=== PATIENT | male | born 1990 | race African-American/Black ===

== ENCOUNTER 2018-03-31 13:18 | Emergency (ER) | payer OTHER ==
[2018-03-31] MEDS ORDERED: LIDOCAINE 1% Multi-Dose 20 ML VIAL. ID (14:30)
[2018-03-31] MEDS: LIDOCAINE 1% Multi-Dose 50 ML VIAL. ID (15:30)
[2018-03-31] MEDS: DIPHTH,PERTUSS(ACELL),TET TOX 0.5 ML DISP.SYRIN. VAX IM (15:54)
== END 2018-03-31 16:00 | disposition home or self-care (01) ==
LOC: ER 13:18
DX: S51.812A Laceration without foreign body of left forearm, initial encounter (principal); I10 Essential (primary) hypertension; W25.XXXA Contact with sharp glass, initial encounter; Y93.89 Activity, other specified; Y99.8 Other external cause status; Y92.89 Other specified places as the place of occurrence of the external cause
CPT/HCPCS: 12002; 90471; 90715; 99283-25

== ENCOUNTER 2018-04-13 11:26 | Emergency (ER) | payer OTHER | END 2018-04-13 11:57 | disposition home or self-care (01) | LOC: ER 11:26 | DX: S51.812D Laceration without foreign body of left forearm, subsequent encounter (principal); I10 Essential (primary) hypertension; X58.XXXD Exposure to other specified factors, subsequent encounter | CPT/HCPCS: 99281 ==

== ENCOUNTER 2018-11-27 05:54 | Emergency (ER) | payer BC, OTHER ==
[~2018-11-27] VITALS: Ht 177.8 cm; Wt 104.3 kg
--- NOTE | 2018-11-27 06:45 | PHYS DOC ---
Past Medical History Past Medical History: Hypertension Past Surgical History: No Surgical History Smoking: Cigarettes Alcohol Use: None Drug Use: None, Marijuana (recently stopped marijuana use) Adult General Chief Complaint Chief Complaint: LOWER EXTREMITY SWELLING HPI HPI Patient is a 28-year-old male who presents to the emergency department for evaluation. He states that on Monday, he began experiencing bilateral lower leg pain, along with some swelling, which seemed to have worsened somewhat today. He denies any definite injury, or any definite insect bites or injuries to his skin. Additionally, he states he has not been intoxicated, and would have known had injured himself. His pain is primarily in his ankles and lower calves bilaterally, somewhat more pronounced on the right. He has not had any fevers or chills, although on exam there is some warmth noted to the skin of his lower legs bilaterally. He denies any chest pain shortness of breath, dizziness or lightheadedness, numbness, or focal weakness. Palpation of the affected area, as well as ambulation, seems to worsen his pain. There are no alleviating factors to his symptoms. The patient states he does have a history of hypertension, but has not been on medication for quite some time. Review of Systems Review of Systems Constitutional: Denies fever or chills [] Eyes: Denies change in visual acuity, redness, or eye pain [] HENT: Denies nasal congestion or sore throat [] Respiratory: Denies cough or shortness of breath [] Cardiovascular: The patient denies any shortness of breath, chest pain, palpitations, or orthopnea [] GI: Denies abdominal pain, nausea, vomiting, bloody stools or diarrhea [] : Denies dysuria or hematuria [] Musculoskeletal: Denies back pain or joint pain, except as noted in the history of present illness [] Integument: Denies rash or skin lesions [] Neurologic: Denies headache, focal weakness or sensory changes [] Endocrine: Denies polyuria or polydipsia [] All other systems were reviewed and found to be within normal limits, except as documented in this note. Current Medications Current Medications Current Medications Medications (Trade) Dose Ordered Sig/Hussein Start Time Stop Time Status Last Admin Dose Admin Morphine Sulfate (Morphine Sulfate) 4 mg 1X ONCE 11/27/18 07:00 11/27/18 07:01 DC 11/27/18 07:34 4 MG Allergies Allergies Allergies Coded Allergies Type Severity Reaction Last Updated Verified No Known Drug Allergies 03/31/18 No Physical Exam Physical Exam PHYSICAL EXAM: CONSTITUTIONAL: Well developed, well nourished HEAD: normocephalic, atraumatic EENT: PERRL, EOMI. Conjunctivae normal color, sclerae non-icteric; moist mucous membranes. NECK: Supple, non-tender; no meningismus. LUNGS: Lungs CTA, breathing even and unlabored. Normal air movement. HEART: Regular rate and rhythm, no murmur CHEST: No deformity; non-tender ABDOMEN: The abdomen is soft, and non-tender, no masses or bruits. EXTREM: Normal ROM; no deformity, no discrete calf tenderness. Normal pulses palpable in all extremities. There is trace edema noted to the area of the right ankle, not evident on the left. There is diffuse tenderness to palpation to the skin and soft tissues in the area of the ankles bilaterally, as well as the soft tissues of the lower legs, right greater than left, with some mild warmth centered on the lower legs anteriorly, bilaterally, there is a small callus on the dorsal aspect of the right second toe, which the patient states has been there chronically, and is nontender. Distal sensation and motor function in the feet are normal. There is no erythema noted to the skin of the extremities. There are no discrete insect bites. SKIN: No rash; no diaphoresis NEURO: Alert; normal speech and cognition; CN's grossly intact; strength grossly intact without focal deficit. BACK: No CVA TTP. Current Patient Data Vital Signs Vital Signs Date Time Temp Pulse Resp B/P (MAP) Pulse Ox O2 Delivery O2 Flow Rate FiO2 11/27/18 06:32 82 16 198/109 (138) 100 Room Air 11/27/18 06:00 99.5 99.5 Lab Values Laboratory Tests Test 11/27/18 06:53 11/27/18 08:50 White Blood Count 9.7 x10^3/uL (4.0-11.0) Red Blood Count 5.53 x10^6/uL (4.30-5.70) Hemoglobin 13.8 g/dL (13.0-17.5) Hematocrit 42.6 % (39.0-53.0) Mean Corpuscular Volume 77 fL (79-100) L Mean Corpuscular Hemoglobin 25 pg (25-35) Mean Corpuscular Hemoglobin Concent 32 g/dL (31-37) Red Cell Distribution Width 13.0 % (11.5-14.5) Platelet Count 371 x10^3/uL (140-400) Neutrophils (%) (Auto) 79 % (31-73) H Lymphocytes (%) (Auto) 13 % (24-48) L Monocytes (%) (Auto) 8 % (0-9) Eosinophils (%) (Auto) 1 % (0-3) Basophils (%) (Auto) 1 % (0-3) Neutrophils # (Auto) 7.6 x10^3uL (1.8-7.7) Lymphocytes # (Auto) 1.2 x10^3/uL (1.0-4.8) Monocytes # (Auto) 0.7 x10^3/uL (0.0-1.1) Eosinophils # (Auto) 0.0 x10^3/uL (0.0-0.7) Basophils # (Auto) 0.1 x10^3/uL (0.0-0.2) Erythrocyte Sedimentation Rate 17 (0-15) H D-Dimer (Yadira) 0.41 ug/mlFEU (0.00-0.50) Sodium Level 137 mmol/L (136-145) Potassium Level 3.6 mmol/L (3.5-5.1) Chloride Level 103 mmol/L (98-107) Carbon Dioxide Level 25 mmol/L (21-32) Anion Gap 9 (6-14) Blood Urea Nitrogen 13 mg/dL (8-26) Creatinine 1.1 mg/dL (0.7-1.3) Estimated GFR (Cockcroft-Gault) 97.2 BUN/Creatinine Ratio 12 (6-20) Glucose Level 108 mg/dL (70-99) H Lactic Acid Level 0.6 mmol/L (0.4-2.0) Calcium Level 9.1 mg/dL (8.5-10.1) Magnesium Level 1.8 mg/dL (1.8-2.4) Total Bilirubin 0.2 mg/dL (0.2-1.0) Aspartate Amino Transferase (AST) 31 U/L (15-37) Alanine Aminotransferase (ALT) 44 U/L (16-63) Alkaline Phosphatase 135 U/L (46-116) H Creatine Kinase 631 U/L (39-308) H Troponin I Quantitative 0.049 ng/mL (0.000-0.055) C-Reactive Protein, Quantitative 55.4 mg/L (0-3.3) H AH-Kro-C-Type Natriuretic Peptide 320 pg/mL (0-124) H Total Protein 7.8 g/dL (6.4-8.2) Albumin 3.3 g/dL (3.4-5.0) L Albumin/Globulin Ratio 0.7 (1.0-1.7) L Urine Collection Type Unknown Urine Color Yellow Urine Clarity Clear Urine pH 6.0 Urine Specific Davis 1.020 Urine Protein 30 mg/dL (NEG-TRACE) Urine Glucose (UA) Negative mg/dL (NEG) Urine Ketones (Stick) Negative mg/dL (NEG) Urine Blood Negative (NEG) Urine Nitrite Negative (NEG) Urine Bilirubin Negative (NEG) Urine Urobilinogen Dipstick 1.0 mg/dL (0.2 mg/dL) Urine Leukocyte Esterase Negative (NEG) Urine RBC Occ /HPF (0-2) Urine WBC Occ /HPF (0-4) Urine Squamous Epithelial Cells Occ /LPF Urine Bacteria 0 /HPF (0-FEW) Urine Mucus Slight /LPF Urine Opiates Screen Pos (NEG) Urine Methadone Screen Neg (NEG) Urine Barbiturates Neg (NEG) Urine Phencyclidine Screen Neg (NEG) Urine Amphetamine/Methamphetamine Neg (NEG) Urine Benzodiazepines Screen Neg (NEG) Urine Cocaine Screen Neg (NEG) Urine Cannabinoids Screen Pos (NEG) Urine Ethyl Alcohol Neg (NEG) Laboratory Tests 11/27/18 06:53 Laboratory Tests 11/27/18 06:53 EKG EKG [Sinus rhythm @ 78 beats per minute, left axis deviation, normal intervals, lateral T wave inversion, lethargic or hypertrophy without acute ischemic ST/T changes. There are no old EKGs available for comparison.] Radiology/Procedures Radiology/Procedures [PROCEDURE: ANKLE BILAT 3V Indication: Ankle pain, swollen. TECHNIQUE: Multiple views of the bilateral ankles COMPARISON: None FINDINGS/ impression: No acute fracture or dislocation. Ankle mortise are intact. Mild bilateral ankle swelling, right more than left.] Course & Med Decision Making Course & Med Decision Making Pertinent Labs and Imaging studies reviewed. (See chart for details) [The patient's condition remains stable, I'm uncertain of the exact etiology of his symptoms. Infectious or inflammatory process or certainly on the differential, the latter is somewhat suspected. The exact etiology of why the patient would develop a myositis is unclear at this time. I discussed overnight hospitalization, as the patient does not have an established primary care provider, but the patient declined this. I did stress importance of outpatient follow-up and he will be given resources to help establish a primary care provider. We discussed return precautions in detail. The importance of compliance of medication was stressed.] Dragon Disclaimer Dragon Disclaimer This electronic medical record was generated, in whole or in part, using a voice recognition dictation system. Departure Departure Impression: Primary Impression: Leg pain Additional Impression: Myositis Disposition: 01 HOME, SELF-CARE Condition: STABLE Referrals: UNKNOWN PCP NAME (PCP) Patient Instructions: Edema, Leg Cramps Additional Instructions: Use the prescribed medications as instructed. It is critically important that you follow-up with family physician or primary care provider for further outpatient evaluation. Please call to schedule appointment using the resources provided. Return to medical care for any new or worsening symptoms, increasing pain, increasing swelling, or any other concerning symptoms. Scripts Doxycycline Hyclate (DOXYCYCLINE HYCLATE) 100 Mg Tablet 1 TAB PO BID, #14 TAB Prov: BRI CUELLAR MD 11/27/18 Methylprednisolone (MEDROL) 4 Mg Tab.ds.pk 1 PKG PO UD, #1 PKG Prov: BRI CUELLAR MD 11/27/18 Problem Qualifiers BRI CUELLAR MD Nov 27, 2018 06:45
--- NOTE | 2018-11-27 06:48 | EKG ---
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
[2018-11-27] MEDS ORDERED: MORPHINE SULFATE 2 MG/ML VIAL. IV ONE (07:00)
[2018-11-27 07:07] LABS: BASO # 0.1 x10^3/uL (0.0-0.2); BASO % 1 % (0-3); EOS % 1 % (0-3); HEMATOCRIT 42.6 % (39.0-53.0); HEMOGLOBIN 13.8 g/dL (13.0-17.5); LYMPH # 1.2 x10^3/uL (1.0-4.8); LYMPH % 13 % (24-48); MEAN CORPUSCULAR HEMOGLOBIN 25 pg (25-35); MEAN CORPUSCULAR HGB CONC 32 g/dL (31-37); MEAN CORPUSCULAR VOLUME 77 fL (79-100); MONO # 0.7 x10^3/uL (0.0-1.1); MONO % 8 % (0-9); NEUT # 7.6 x10^3uL (1.8-7.7); NEUT % 79 % (31-73); PLATELET COUNT 371 x10^3/uL (140-400); RED BLOOD COUNT 5.53 x10^6/uL (4.30-5.70); WHITE BLOOD COUNT 9.7 x10^3/uL (4.0-11.0)
[2018-11-27 07:29] LABS: CALCIUM 9.1 mg/dL (8.5-10.1); CREATININE 1.1 mg/dL (0.7-1.3); GFR 97.2; POTASSIUM 3.6 mmol/L (3.5-5.1)
[2018-11-27 07:33] LABS: ALBUMIN 3.3 g/dL (3.4-5.0); ALBUMIN/GLOBULIN RATIO 0.7 (1.0-1.7); MAGNESIUM 1.8 mg/dL (1.8-2.4); TOTAL BILIRUBIN 0.2 mg/dL (0.2-1.0); TOTAL PROTEIN 7.8 g/dL (6.4-8.2)
[2018-11-27 07:53] LABS: C-REACTIVE PROTEIN 55.4 mg/L (0-3.3)
--- NOTE | 2018-11-27 08:20 | RAD ---
Indication: Ankle pain, swollen. TECHNIQUE: Multiple views of the bilateral ankles COMPARISON: None FINDINGS/ impression: No acute fracture or dislocation. Ankle mortise are intact. Mild bilateral ankle swelling, right more than left. Electronically signed by: Neeraj Solis DO (11/27/2018 8:15 AM) [id number]
[2018-11-27 09:07] LABS: BILIRUBIN,URINE NEGATIVE (NEG); CLARITY,URINE CLEAR; COLOR,URINE YELLOW; NITRITE,URINE NEGATIVE (NEG); PROTEIN,URINE 30 mg/dL (NEG-TRACE)
[2018-11-27 09:11] LABS: AMPHETAMINE/METHAMPHETAMINE NEG (NEG); BARBITURATES NEG (NEG); BENZODIAZEPINES NEG (NEG); CANNABINOIDS POS (NEG); COCAINE NEG (NEG); METHADONE NEG (NEG); OPIATES POS (NEG); PHENCYCLIDINE NEG (NEG)
[2018-11-27 09:17] LABS: RBC,URINE OCC /HPF (0-2)
[2018-11-27 09:18] LABS: BACTERIA,URINE 0 /HPF (0-FEW); SQUAMOUS EPITHELIAL CELL,UR OCC /LPF; WBC,URINE OCC /HPF (0-4)
[2018-11-27 09:30] VITALS: BP 188/85
[2018-11-27] MEDS ORDERED: DOXY100T PO (09:39)
[2018-11-27] MEDS ORDERED: METH4TAB2 PO (09:39)
== END 2018-11-27 10:04 | disposition home or self-care (01) ==
LOC: ER 05:54
DX: M60.862 Other myositis, left lower leg (principal); M60.861 Other myositis, right lower leg; M25.471 Effusion, right ankle; M25.472 Effusion, left ankle; I10 Essential (primary) hypertension; F17.210 Nicotine dependence, cigarettes, uncomplicated
CPT/HCPCS: 36415; 73610; 80053; 80307; 81001; 82550; 83605; 83735; 83880; 84484; 85025; 85379; 85651; 86140; 87040; 93005; 96374; 99284; J2270

== ENCOUNTER 2022-02-11 01:24 | Inpatient (IN) | payer OTHER ==
[~2022-02-11] VITALS: Ht 180.3 cm; Wt 95.9 kg
[2022-02-11] VITALS (12 sets, daily range): BP systolic 140–179; BP diastolic 94–128
[~2022-02-11 01:24] MED LIST: AMLO-187 PO; CARV6.2511 PO; DOXY100T PO; HYDR-2869 PO; METH4TAB2 PO
[2022-02-11 02:07] LABS: BASO # 0.1 x10^3/uL (0.0-0.2); BASO % 1 % (0-3); EOS # 0.1 x10^3/uL (0.0-0.7); EOS % 2 % (0-3); HEMATOCRIT 41.3 % (39.0-53.0); HEMOGLOBIN 13.8 g/dL (13.0-17.5); LYMPH # 1.6 x10^3/uL (1.0-4.8); LYMPH % 29 % (24-48); MEAN CORPUSCULAR HEMOGLOBIN 26 pg (25-35); MEAN CORPUSCULAR HGB CONC 34 g/dL (31-37); MEAN CORPUSCULAR VOLUME 76 fL (79-100); MONO # 0.4 x10^3/uL (0.0-1.1); MONO % 7 % (0-9); NEUT # 3.5 x10^3/uL (1.8-7.7); NEUT % 62 % (31-73); PLATELET COUNT 344 x10^3/uL (140-400); RED BLOOD COUNT 5.42 x10^6/uL (4.30-5.70); RED CELL DISTRIBUTION WIDTH 13.6 % (11.5-14.5); WHITE BLOOD COUNT 5.6 x10^3/uL (4.0-11.0)
--- NOTE | 2022-02-11 02:09 | RAD ---
AP chest x-ray HISTORY: Shortness of breath. COMPARISON: Chest x-ray March 19, 2021 FINDINGS: Cardiomegaly is stable. No pneumothorax. No pleural effusions. Pulmonary interstitial infil trates are stable. IMPRESSION: Congestive heart failure and pulmonary interstitial edema, likely reflective of congestiv e heart failure, stable. No pleural effusions. Electronically signed by: Drake Fisher MD (02/11/2022 2:07 AM) [facility]
[2022-02-11 02:16] LABS: PROTHROMBIN TIME PATIENT 14.1 SEC (11.7-14.0)
[2022-02-11 02:19] LABS: CALCIUM 8.6 mg/dL (8.5-10.1); CREATININE 1.9 mg/dL (0.7-1.3); GFR 50.6; POTASSIUM 4.3 mmol/L (3.5-5.1)
[2022-02-11 02:24] LABS: ALBUMIN 2.8 g/dL (3.4-5.0); ALBUMIN/GLOBULIN RATIO 0.7 (1.0-1.7); TOTAL BILIRUBIN 0.5 mg/dL (0.2-1.0); TOTAL PROTEIN 6.6 g/dL (6.4-8.2)
--- NOTE | 2022-02-11 03:29 | PHYS DOC ---
Past Medical History Past Medical History: Hypertension Past Surgical History: Other Additional Past Surgical Histo: Testicular (didn't drop) Smoking Status: Never Smoker Alcohol Use: None Drug Use: None, Marijuana Adult General Chief Complaint Chief Complaint: SHORTNESS OF BREATH HPI HPI The patient is a 31-year-old male with a history of severe hypertension (supposed to be on multiple medications but noncompliant for the last 1 year), cardiomyopathy/heart failure (ejection fraction 40-45% as per last echocardiogram, with moderate concentric LVH) and tobacco abuse. Mr. Stevenson presents for evaluation of dyspnea with minimal exertion as well as orthopnea and PND, all with onset over the last 2 to 3 days. Associated minimal bilateral symmetric ankle swelling. 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 States this is not normal for him. Denies other focal or specific symptoms and specifically denies fevers, nausea or vomiting, upper respiratory congestion/rhinorrhea, cough, sore throat, chest pain of any kind, abdominal pain, flank pain, back pain, dysuria, hematuria, polyuria or oliguria, changes in bowel habits. Patient is alert, oriented x4, pleasantly and appropriately interactive and in no acute distress, not conversationally dyspneic, and ambulatory to his ED bed with a narrow, steady gait. Vital signs are notable for marked hypertension (213/160 on arrival) and are otherwise reassuring. Review of Systems Review of Systems A 12 point review of systems was completed and was negative except where noted in HPI above. Current Medications Current Medications Current Medications Medications (Trade) Dose Ordered Sig/Hussein Start Time Stop Time Status Last Admin Dose Admin Acetaminophen (Tylenol) 650 mg PRN Q4HRS PRN 02/11/22 03:45 02/12/22 03:44 UNV Aspirin (Aspirin Chewable) 324 mg 1X ONCE 02/11/22 03:30 02/11/22 03:31 DC Furosemide (Lasix) 40 mg 1X ONCE 02/11/22 03:30 02/11/22 03:31 DC Nicardipine HCl 50 mg/Sodium Chloride 250 ml @ 50 mls/hr CONT PRN 02/11/22 02:15 02/11/22 02:40 50 MLS/HR Ondansetron HCl (Zofran) 4 mg PRN Q8HRS PRN 02/11/22 03:45 02/12/22 03:44 UNV Allergies Allergies Allergies Coded Allergies Type Severity Reaction Last Updated Verified No Known Drug Allergies 03/31/18 No Physical Exam Physical Exam 31-year-old male appearing nontoxic and in no acute distress. Head is normocephalic and atraumatic. Neck is supple and nontender. Oropharynx is moist. Lungs are clear to auscultation at all stations. There is a normal S1 and S2 without rubs or gallops and capillary refill is appropriate, less than 2 seconds globally. Abdomen is soft, nontender and nondistended without pulsatile mass. Skin is warm and dry without cyanosis, clubbing or edema. Psychiatrically, the patient demonstrates appropriate mood and affect and is alert. Evaluation of the extremities reveals BUEs and BLEs neurovascularly intact distally with strength 5 out of 5, sensation intact light touch in all nerve distributions, radial, DP and PT pulses 2+ and equal bilaterally, capillary refill less than 2 seconds, hands and feet warm and well-perfused. 1+ pitting edema of the bilateral lower extremities at the level of the ankles and below, symmetric. No calf tenderness or swelling bilaterally. Homans test is negative bilaterally. Current Patient Data Vital Signs Vital Signs Date Time Temp Pulse Resp B/P (MAP) Pulse Ox O2 Delivery O2 Flow Rate FiO2 02/11/22 03:38 101 16 167/104 (125) 97 Room Air 02/11/22 01:38 98.4 98.4 Lab Values Laboratory Tests Test 02/11/22 01:58 02/11/22 03:12 White Blood Count 5.6 x10^3/uL (4.0-11.0) Red Blood Count 5.42 x10^6/uL (4.30-5.70) Hemoglobin 13.8 g/dL (13.0-17.5) Hematocrit 41.3 % (39.0-53.0) Mean Corpuscular Volume 76 fL (79-100) L Mean Corpuscular Hemoglobin 26 pg (25-35) Mean Corpuscular Hemoglobin Concent 34 g/dL (31-37) Red Cell Distribution Width 13.6 % (11.5-14.5) Platelet Count 344 x10^3/uL (140-400) Neutrophils (%) (Auto) 62 % (31-73) Lymphocytes (%) (Auto) 29 % (24-48) Monocytes (%) (Auto) 7 % (0-9) Eosinophils (%) (Auto) 2 % (0-3) Basophils (%) (Auto) 1 % (0-3) Neutrophils # (Auto) 3.5 x10^3/uL (1.8-7.7) Lymphocytes # (Auto) 1.6 x10^3/uL (1.0-4.8) Monocytes # (Auto) 0.4 x10^3/uL (0.0-1.1) Eosinophils # (Auto) 0.1 x10^3/uL (0.0-0.7) Basophils # (Auto) 0.1 x10^3/uL (0.0-0.2) Prothrombin Time 14.1 SEC (11.7-14.0) H Prothrombin Time INR 1.1 (0.8-1.1) Activated Partial Thromboplast Time 32 SEC (24-38) Sodium Level 135 mmol/L (136-145) L Potassium Level 4.3 mmol/L (3.5-5.1) Chloride Level 103 mmol/L (98-107) Carbon Dioxide Level 23 mmol/L (21-32) Anion Gap 9 (6-14) Blood Urea Nitrogen 31 mg/dL (8-26) H Creatinine 1.9 mg/dL (0.7-1.3) H Estimated GFR (Cockcroft-Gault) 50.6 BUN/Creatinine Ratio 16 (6-20) Glucose Level 101 mg/dL (70-99) H Calcium Level 8.6 mg/dL (8.5-10.1) Total Bilirubin 0.5 mg/dL (0.2-1.0) Aspartate Amino Transferase (AST) 84 U/L (15-37) H Alanine Aminotransferase (ALT) 161 U/L (16-63) H Alkaline Phosphatase 137 U/L (46-116) H Troponin I High Sensitivity 603 ng/L (4-75) H IV-Yng-F-Type Natriuretic Peptide 6311 pg/mL (0-124) H Total Protein 6.6 g/dL (6.4-8.2) Albumin 2.8 g/dL (3.4-5.0) L Albumin/Globulin Ratio 0.7 (1.0-1.7) L Ethyl Alcohol Level < 10 mg/dL (0-10) Urine Opiates Screen Neg (NEG) Urine Methadone Screen Neg (NEG) Urine Barbiturates Neg (NEG) Urine Phencyclidine Screen Neg (NEG) Urine Amphetamine/Methamphetamine Neg (NEG) Urine Benzodiazepines Screen Neg (NEG) Urine Cocaine Screen Neg (NEG) Urine Cannabinoids Screen Pos (NEG) Urine Ethyl Alcohol Neg (NEG) Laboratory Tests 02/11/22 01:58 Laboratory Tests 02/11/22 01:58 EKG EKG Sinus rhythm, rate 106, no acute ST elevation or depression, RI 146, QRS 102, QT c 477, EP interpretation. Nonischemic tracing. Radiology/Procedures Radiology/Procedures AP chest x-ray HISTORY: Shortness of breath. COMPARISON: Chest x-ray March 19, 2021 FINDINGS: Cardiomegaly is stable. No pneumothorax. No pleural effusions. Pulmonary interstitial infiltrates are stable. IMPRESSION: Congestive heart failure and pulmonary interstitial edema, likely reflective of congestive heart failure, stable. No pleural effusions. Electronically signed by: Zackary Fisher MD (02/11/2022 2:07 AM) [facility] [place] DICTATED and SIGNED BY: ZACKARY FISHER MD DATE: 02/11/22204 Course & Med Decision Making Course & Med Decision Making As above is remarkable primarily for acute renal insufficiency, evidence of acute on chronic congestive failure with elevated BNP and interstitial edema noted on chest x-ray, and evidence of NSTEMI which is likely Type II due to demand given lack of any chest pain now or in the recent past. No ischemic changes on EKG. Have given a full-strength aspirin and a dose of Lovenox. Blood pressure has come down nicely on a nicardipine drip. Patient has received a dose of IV Lasix. Mild LFT derangements are likely due to congestive hepatopathy. I had a long conversation with Mr. Stevenson regarding the need to be adherent to therapy for his heart failure and his hypertension. Adhering to prescribed therapy and following up with a primary care doctor and with the senior materials scientist on an outpatient basis will prevent his early . He was able to restate these teaching points in his own words and appeared to understand them. Bringing in for further care under hospitalist Dr. Maria, who graciously accepts. Cardiology consult placed. Danial Disclaimer Danial Disclaimer This electronic medical record was generated, in whole or in part, using a voice recognition dictation system. Departure Departure Impression: Primary Impression: Acute exacerbation of congestive heart failure Additional Impressions: Accelerated hypertension Acute renal insufficiency NSTEMI (non-ST elevated myocardial infarction) Disposition: ADMITTED INPATIENT Condition: GUARDED Referrals: NON,STAFF (PCP) Problem Qualifiers Primary Impression: Acute exacerbation of congestive heart failure Heart failure type: combined systolic and diastolic Qualified Codes: I50.43 - Acute on chronic combined systolic (congestive) and diastolic (congestive) heart failure VARINDER PARKS MD Feb 11, 2022 03:29
[2022-02-11] MEDS ORDERED: FUROSEMIDE 40 MG/4 ML VIAL. IVP ONE (03:30)
[2022-02-11] MEDS ORDERED: ASPIRIN CHEWABLE 81 MG TABLET. PO ONE (03:30)
[2022-02-11 03:31] LABS: BARBITURATES NEG (NEG); BENZODIAZEPINES NEG (NEG); CANNABINOIDS POS (NEG); COCAINE NEG (NEG); METHADONE NEG (NEG); OPIATES NEG (NEG); PHENCYCLIDINE NEG (NEG)
[2022-02-11 03:36] LABS: AMPHETAMINE/METHAMPHETAMINE NEG (NEG)
[2022-02-11] MEDS ORDERED: ONDANSETRON PF 4 MG/2 ML VIAL. IVP PRN ×2 (03:45→10:00)
[2022-02-11] MEDS ORDERED: ACETAMINOPHEN 325 MG TABLET. PO PRN ×2 (03:45→10:00)
--- NOTE | 2022-02-11 06:17 | EKG ---
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
[2022-02-11 09:02] LABS: CHOLESTEROL/HDL RATIO 4.4
[2022-02-11] MEDS: ASPIRIN ENTERIC COATED 81 MG TABLET.DR. PO SCH (09:10)
[2022-02-11] MEDS: CARVEDILOL 6.25 MG TABLET. PO SCH ×2 (09:12→15:42)
[2022-02-11] MEDS: LABETALOL 20 MG/4 ML DISP.SYRIN. IVP PRN ×2 (09:13→12:36)
--- NOTE | 2022-02-11 09:59 | PDOC1 ---
History and Physical Date of Service: DOS: DATE: 02/11/22 TIME: 09:53 Chief Complaint: Chief Complain: sob, malik History of Present Illness: HPI: Patient is a 31-year-old -Cub[place] male presented to the emergency room overnight due to shortness of breath and dyspnea on exertion. Patient was seen here nearly a year ago and diagnosed with hypertension heart failure. Was discharged home on a handful of medications and was initially compliant but the mother's children had recently around that time obviously was very distraught said he stopped taking care of himself overall thus stopped taking his medicine as well. Said that since stopping his medication he will occasionally get similar shortness of breath episodes. But would resolve. Notes that during this episode he was having shortness of breath with minimal exertion as well as unable to lay flat and bilateral ankle swelling. Started 3 to 5 days ago. Given worsening of the symptoms and being out of his prescriptions he decided to present to the emergency room overnight. On arrival here blood pressure was greater than 200 systolic eventually required to be placed on Cardene drip which has been weaned off at this point. He does still have some fluid overload and pulmonary edema. When I evaluated him at bedside he was up in the chair very pleasant reporting some ongoing shortness of breath when he gets up to go to the bathroom. C ardiology consult. Past Medical/Surgical History: PMH/PSH: Past Medical History: Hypertension, chf Additional Past Surgical Histo: Testicular (didn't drop) Smoking Status: Occasional tobacco use Alcohol Use: None Drug Use: None, Marijuana Allergies: Allergies: Coded Allergies: No Known Drug Allergies (Unverified , 03/31/18) Family History: Family History: Hypertension Current Medications: Current Medications Current Medications Nicardipine HCl 50 mg/Sodium Chloride 250 ml @ 50 mls/hr CONT PRN IV PER PROTOCOL Last administered on 02/11/22at 02:40; Start 02/11/22 at 02:15 Aspirin (Aspirin Chewable) 324 mg 1X ONCE PO Last administered on 02/11/22at 04:13; Start 02/11/22 at 03:30; Stop 02/11/22 at 03:31; Status DC Furosemide (Lasix) 40 mg 1X ONCE IVP Last administered on 02/11/22at 04:13; Start 02/11/22 at 03:30; Stop 02/11/22 at 03:31; Status DC Ondansetron HCl (Zofran) 4 mg PRN Q8HRS PRN IVP NAUSEA/VOMITING 1ST CHOICE; Start 02/11/22 at 03:45; Stop 02/12/22 at 03:44 Acetaminophen (Tylenol) 650 mg PRN Q4HRS PRN PO FEVER > 100.3'F; Start 02/11/22 at 03:45; Stop 02/12/22 at 03:44 Enoxaparin Sodium (Lovenox 100mg Syringe) 100 mg 1X ONCE SQ Last administered on 02/11/22at 04:13; Start 02/11/22 at 04:15; Stop 02/11/22 at 04:16; Status DC Amlodipine Besylate (Norvasc) 10 mg DAILY PO Last administered on 02/11/22at 09:12; Start 02/11/22 at 09:00 Carvedilol (Coreg) 6.25 mg BIDWMEALS PO Last administered on 02/11/22at 09:12; Start 02/11/22 at 09:00 Aspirin (Ecotrin) 81 mg DAILYWBKFT PO Last administered on 02/11/22at 09:10; Start 02/11/22 at 09:00 Labetalol HCl (Normodyne Iv Push) 20 mg PRN Q2HR PRN IVP HYPERTENSION Last administered on 02/11/22at 09:13; Start 02/11/22 at 08:30 Active Scripts Active Reported No Known Medications Prior To Admisstion (Info) Each 1 Each MC 1X ROS: Review of Systems Review of System Unless noted in HPI 14 point review of systems is negative Physical Exam: Vital Signs: Vital Signs Date Time Temp Pulse Resp B/P (MAP) Pulse Ox O2 Delivery O2 Flow Rate FiO2 02/11/22 09:13 98 171/110 02/11/22 07:00 97.7 18 98 Nasal Cannula 2.0 97.7 Physcial Exam: GEN: No apparent distress. Alert and oriented HEENT: Normal cephalic, atraumatic, external auditory canals are patent EYES: Extraocular muscles are intact, pupil are equally round and reactive to light and accommodation MUSCULOSKELETAL: Well developed , well nourished, good range of motion ENDOCRINE: No thyromegaly was palpated LYMPHATICS: No cervical chain or axillary nodes were noted HEMATOPOIETIC: No bruising NECK: Supple, no JVD, no thyromegaly was noted LUNGS: Decreased air entry throughout crackles bilaterally. HEART: RRR, S1, S2 present. Peripheral pulses intact, no obvious murmurs noted ABDOMEN: Soft, nontender. Positive bowel sounds, no organomegaly, normal bowel sounds EXTREMITIES: . Mild bilateral lower extremity edema NEUROLOGIC: Normal speech and tone. A&O x 3, moves all extremities, no obvio us focal deficits PSYCHIATRIC: Normal affect, normal mood. Stable SKIN: No ulcerations or rashes, good skin turgor, no jaundice VASCULAR: Good capillary refill, neurovascular bundle appears to be intact Labs: Labs: Laboratory Tests Test 02/11/22 01:58 02/11/22 03:12 02/11/22 04:00 02/11/22 07:30 White Blood Count 5.6 x10^3/uL (4.0-11.0) Red Blood Count 5.42 x10^6/uL (4.30-5.70) Hemoglobin 13.8 g/dL (13.0-17.5) Hematocrit 41.3 % (39.0-53.0) Mean Corpuscular Volume 76 fL (79-100) Mean Corpuscular Hemoglobin 26 pg (25-35) Mean Corpuscular Hemoglobin Concent 34 g/dL (31-37) Red Cell Distribution Width 13.6 % (11.5-14.5) Platelet Count 344 x10^3/uL (140-400) Neutrophils (%) (Auto) 62 % (31-73) Lymphocytes (%) (Auto) 29 % (24-48) Monocytes (%) (Auto) 7 % (0-9) Eosinophils (%) (Auto) 2 % (0-3) Basophils (%) (Auto) 1 % (0-3) Neutrophils # (Auto) 3.5 x10^3/uL (1.8-7.7) Lymphocytes # (Auto) 1.6 x10^3/uL (1.0-4.8) Monocytes # (Auto) 0.4 x10^3/uL (0.0-1.1) Eosinophils # (Auto) 0.1 x10^3/uL (0.0-0.7) Basophils # (Auto) 0.1 x10^3/uL (0.0-0.2) Prothrombin Time 14.1 SEC (11.7-14.0) Prothromb Time International Ratio 1.1 (0.8-1.1) Activated Partial Thromboplast Time 32 SEC (24-38) Sodium Level 135 mmol/L (136-145) Potassium Level 4.3 mmol/L (3.5-5.1) Chloride Level 103 mmol/L (98-107) Carbon Dioxide Level 23 mmol/L (21-32) Anion Gap 9 (6-14) Blood Urea Nitrogen 31 mg/dL (8-26) Creatinine 1.9 mg/dL (0.7-1.3) Estimated GFR (Cockcroft-Gault) 50.6 BUN/Creatinine Ratio 16 (6-20) Glucose Level 101 mg/dL (70-99) Calcium Level 8.6 mg/dL (8.5-10.1) Total Bilirubin 0.5 mg/dL (0.2-1.0) Aspartate Amino Transf (AST/SGOT) 84 U/L (15-37) Alanine Aminotransferase (ALT/SGPT) 161 U/L (16-63) Alkaline Phosphatase 137 U/L (46-116) Troponin I High Sensitivity 603 ng/L (4-75) 601 ng/L (4-75) 549 ng/L (4-75) NG-Gop-A-Type Natriuretic Peptide 6311 pg/mL (0-124) Total Protein 6.6 g/dL (6.4-8.2) Albumin 2.8 g/dL (3.4-5.0) Albumin/Globulin Ratio 0.7 (1.0-1.7) Triglycerides Level 73 mg/dL (0-150) Cholesterol Level 164 mg/dL (0-200) LDL Cholesterol, Calculated 112 mg/dL (0-100) VLDL Cholesterol, Calculated 15 mg/dL (0-40) Non-HDL Cholesterol Calculated 127 mg/dL (0-129) HDL Cholesterol 37 mg/dL (40-60) Cholesterol/HDL Ratio 4.4 Thyroid Stimulating Hormone (TSH) 2.622 uIU/mL (0.358-3.74) Ethyl Alcohol Level < 10 mg/dL (0-10) Urine Opiates Screen Neg (NEG) Urine Methadone Screen Neg (NEG) Urine Barbiturates Neg (NEG) Urine Phencyclidine Screen Neg (NEG) Urine Amphetamine/Methamphetamine Neg (NEG) Urine Benzodiazepines Screen Neg (NEG) Urine Cocaine Screen Neg (NEG) Urine Cannabinoids Screen Pos (NEG) Urine Ethyl Alcohol Neg (NEG) Laboratory Tests Test 02/11/22 01:58 02/11/22 03:12 02/11/22 04:00 02/11/22 07:30 White Blood Count 5.6 x10^3/uL (4.0-11.0) Red Blood Count 5.42 x10^6/uL (4.30-5.70) Hemoglobin 13.8 g/dL (13.0-17.5) Hematocrit 41.3 % (39.0-53.0) Mean Corpuscular Volume 76 fL (79-100) Mean Corpuscular Hemoglobin 26 pg (25-35) Mean Corpuscular Hemoglobin Concent 34 g/dL (31-37) Red Cell Distribution Width 13.6 % (11.5-14.5) Platelet Count 344 x10^3/uL (140-400) Neutrophils (%) (Auto) 62 % (31-73) Lymphocytes (%) (Auto) 29 % (24-48) Monocytes (%) (Auto) 7 % (0-9) Eosinophils (%) (Auto) 2 % (0-3) Basophils (%) (Auto) 1 % (0-3) Neutrophils # (Auto) 3.5 x10^3/uL (1.8-7.7) Lymphocytes # (Auto) 1.6 x10^3/uL (1.0-4.8) Monocytes # (Auto) 0.4 x10^3/uL (0.0-1.1) Eosinophils # (Auto) 0.1 x10^3/uL (0.0-0.7) Basophils # (Auto) 0.1 x10^3/uL (0.0-0.2) Prothrombin Time 14.1 SEC (11.7-14.0) Prothromb Time International Ratio 1.1 (0.8-1.1) Activated Partial Thromboplast Time 32 SEC (24-38) Sodium Level 135 mmol/L (136-145) Potassium Level 4.3 mmol/L (3.5-5.1) Chloride Level 103 mmol/L (98-107) Carbon Dioxide Level 23 mmol/L (21-32) Anion Gap 9 (6-14) Blood Urea Nitrogen 31 mg/dL (8-26) Creatinine 1.9 mg/dL (0.7-1.3) Estimated GFR (Cockcroft-Gault) 50.6 BUN/Creatinine Ratio 16 (6-20) Glucose Level 101 mg/dL (70-99) Calcium Level 8.6 mg/dL (8.5-10.1) Total Bilirubin 0.5 mg/dL (0.2-1.0) Aspartate Amino Transf (AST/SGOT) 84 U/L (15-37) Alanine Aminotransferase (ALT/SGPT) 161 U/L (16-63) Alkaline Phosphatase 137 U/L (46-116) Troponin I High Sensitivity 603 ng/L (4-75) 601 ng/L (4-75) 549 ng/L (4-75) XR-Waj-I-Type Natriuretic Peptide 6311 pg/mL (0-124) Total Protein 6.6 g/dL (6.4-8.2) Albumin 2.8 g/dL (3.4-5.0) Albumin/Globulin Ratio 0.7 (1.0-1.7) Triglycerides Level 73 mg/dL (0-150) Cholesterol Level 164 mg/dL (0-200) LDL Cholesterol, Calculated 112 mg/dL (0-100) VLDL Cholesterol, Calculated 15 mg/dL (0-40) Non-HDL Cholesterol Calculated 127 mg/dL (0-129) HDL Cholesterol 37 mg/dL (40-60) Cholesterol/HDL Ratio 4.4 Thyroid Stimulating Hormone (TSH) 2.622 uIU/mL (0.358-3.74) Ethyl Alcohol Level < 10 mg/dL (0-10) Urine Opiates Screen Neg (NEG) Urine Methadone Screen Neg (NEG) Urine Barbiturates Neg (NEG) Urine Phencyclidine Screen Neg (NEG) Urine Amphetamine/Methamphetamine Neg (NEG) Urine Benzodiazepines Screen Neg (NEG) Urine Cocaine Screen Neg (NEG) Urine Cannabinoids Screen Pos (NEG) Urine Ethyl Alcohol Neg (NEG) Assessment/Plan Assessment/Plan Shortness of breath secondary to acute on chronic congestive heart failure systolic, hypertensive urgency following history. Acute kidney injury known hypertension. Noncompliance with medications -Presented with several days worsening shortness of breath and fluid overload. Known history of hypertension CHF -Systolic blood pressure greater than 200 on presentation eventually required Cardene drip -Cardene drip able to be weaned off. Cardiology consulted started patient on Coreg amlodipine and as needed labetalol -Echocardiogram ordered -Does need more diuresis will need to balance this with impaired kidney function -DVT prophylaxis Heparin; troponins trending down -Cardiac diet fluid restriction -Up ad mary. Justifications for Admission Other Justification Hypertensive emergency HAYDEN HUTSON MD Feb 11, 2022 09:59
[2022-02-11] MEDS ORDERED: oxyCODONE/APAP 5/325 1 TAB TABLET PO PRN ×2 (10:00)
[2022-02-11] MEDS ORDERED: ZOLPIDEM 5 MG TABLET. PO PRN (10:00)
[2022-02-11] MEDS ORDERED: ELECTROLYTE (NON-ICU) PROTOCOL. MC PRN (10:00)
[2022-02-11] MEDS ORDERED: CALCIUM CARBONATE 500 MG TAB.CHEW PO PRN (10:00)
--- NOTE | 2022-02-11 10:56 | PDOC2 ---
LATANYA JARAMILLO CARE TECH 02/11/22 1056: CARDIAC CONSULT DATE OF CONSULT Date of Consult DATE: 02/11/22 TIME: 10:30 REASON FOR CONSULT Reason for Consult: CHF, NSTEMI, HTN emergency, noncompliance REFERRING PHYSICIAN Referring Physician: Makeda SOURCE Source: Chart review, Patient HISTORY OF PRESENT ILLNESS HISTORY OF PRESENT ILLNESS This is a pleasant 31 yo male admitted for complains of shortness of breath. T his has been ongoing in the last 2 days. No chest pain or palpitations. Positive for orthopnea and leg swelling. He has not taken any BP meds since he rant out last yr and failed to follow up. No fever or chills. He is no vaccinated for covid-19. PAST MEDICAL HISTORY Cardiovascular: CHF, HTN, Other (cardiomyopathy) Renal/: Chronic renal insuff PAST SURGICAL HISTORY Past Surgical History: Other (testicular surgery) FAMILY HISTORY Family History: Stroke SOCIAL HISTORY Smoke: <1 pack per day ALCOHOL: none Drugs: Marijuana Lives: Alone CURRENT MEDICATIONS CURRENT MEDICATIONS Current Medications Medications (Trade) Dose Ordered Sig/Hussein Route PRN Reason Start Time Stop Time Status Last Admin Dose Admin Nicardipine HCl 50 mg/Sodium Chloride 250 ml @ 50 mls/hr CONT PRN IV PER PROTOCOL 02/11/22 02:15 02/11/22 02:40 Aspirin (Aspirin Chewable) 324 mg 1X ONCE PO 02/11/22 03:30 02/11/22 03:31 DC 02/11/22 04:13 Furosemide (Lasix) 40 mg 1X ONCE IVP 02/11/22 03:30 02/11/22 03:31 DC 02/11/22 04:13 Enoxaparin Sodium (Lovenox 100mg Syringe) 100 mg 1X ONCE SQ 02/11/22 04:15 02/11/22 04:16 DC 02/11/22 04:13 Amlodipine Besylate (Norvasc) 10 mg DAILY PO 02/11/22 09:00 02/11/22 09:12 Carvedilol (Coreg) 6.25 mg BIDWMEALS PO 02/11/22 09:00 02/11/22 09:12 Aspirin (Ecotrin) 81 mg DAILYWBKFT PO 02/11/22 09:00 02/11/22 09:10 Labetalol HCl (Normodyne Iv Push) 20 mg PRN Q2HR PRN IVP HYPERTENSION 02/11/22 08:30 02/11/22 09:13 ALLERGIES ALLERGIES: Coded Allergies: No Known Drug Allergies (Unverified , 03/31/18) ROS Review of System 14 point ROS evaluated with pertinent positives noted per HPI PHYSICAL EXAM General: Alert, Oriented X3, Cooperative, No acute distress HEENT: Atraumatic, Mucous membr. moist/pink Lungs: Other (diminished bases) Heart: Regular rate Abdomen: Soft, No tenderness Extremities: No cyanosis Skin: No breakdown, No significant lesion Neuro: Normal speech, Sensation intact Psych/Mental Status: Mental status NL, Mood NL MUSCULOSKELETAL: Osteoarthritic changes both hands VITALS/I&O VITALS/I&O: Vital Signs Date Time Temp Pulse Resp B/P (MAP) Pulse Ox O2 Delivery O2 Flow Rate FiO2 02/11/22 09:13 98 171/110 02/11/22 07:00 97.7 18 98 Nasal Cannula 2.0 97.7 LABS Lab: Laboratory Tests Test 02/11/22 01:58 02/11/22 03:12 02/11/22 04:00 02/11/22 07:30 White Blood Count 5.6 x10^3/uL (4.0-11.0) Red Blood Count 5.42 x10^6/uL (4.30-5.70) Hemoglobin 13.8 g/dL (13.0-17.5) Hematocrit 41.3 % (39.0-53.0) Mean Corpuscular Volume 76 fL (79-100) L Mean Corpuscular Hemoglobin 26 pg (25-35) Mean Corpuscular Hemoglobin Concent 34 g/dL (31-37) Red Cell Distribution Width 13.6 % (11.5-14.5) Platelet Count 344 x10^3/uL (140-400) Neutrophils (%) (Auto) 62 % (31-73) Lymphocytes (%) (Auto) 29 % (24-48) Monocytes (%) (Auto) 7 % (0-9) Eosinophils (%) (Auto) 2 % (0-3) Basophils (%) (Auto) 1 % (0-3) Neutrophils # (Auto) 3.5 x10^3/uL (1.8-7.7) Lymphocytes # (Auto) 1.6 x10^3/uL (1.0-4.8) Monocytes # (Auto) 0.4 x10^3/uL (0.0-1.1) Eosinophils # (Auto) 0.1 x10^3/uL (0.0-0.7) Basophils # (Auto) 0.1 x10^3/uL (0.0-0.2) Prothrombin Time 14.1 SEC (11.7-14.0) H Prothrombin Time INR 1.1 (0.8-1.1) Activated Partial Thromboplast Time 32 SEC (24-38) Sodium Level 135 mmol/L (136-145) L Potassium Level 4.3 mmol/L (3.5-5.1) Chloride Level 103 mmol/L (98-107) Carbon Dioxide Level 23 mmol/L (21-32) Anion Gap 9 (6-14) Blood Urea Nitrogen 31 mg/dL (8-26) H Creatinine 1.9 mg/dL (0.7-1.3) H Estimated GFR (Cockcroft-Gault) 50.6 BUN/Creatinine Ratio 16 (6-20) Glucose Level 101 mg/dL (70-99) H Calcium Level 8.6 mg/dL (8.5-10.1) Total Bilirubin 0.5 mg/dL (0.2-1.0) Aspartate Amino Transferase (AST) 84 U/L (15-37) H Alanine Aminotransferase (ALT) 161 U/L (16-63) H Alkaline Phosphatase 137 U/L (46-116) H Troponin I High Sensitivity 603 ng/L (4-75) H 601 ng/L (4-75) H 549 ng/L (4-75) H BL-Nae-P-Type Natriuretic Peptide 6311 pg/mL (0-124) H Total Protein 6.6 g/dL (6.4-8.2) Albumin 2.8 g/dL (3.4-5.0) L Albumin/Globulin Ratio 0.7 (1.0-1.7) L Triglycerides Level 73 mg/dL (0-150) Cholesterol Level 164 mg/dL (0-200) LDL Cholesterol, Calculated 112 mg/dL (0-100) H VLDL Cholesterol, Calculated 15 mg/dL (0-40) Non-HDL Cholesterol Calculated 127 mg/dL (0-129) HDL Cholesterol 37 mg/dL (40-60) L Cholesterol/HDL Ratio 4.4 Thyroid Stimulating Hormone (TSH) 2.622 uIU/mL (0.358-3.74) Ethyl Alcohol Level < 10 mg/dL (0-10) Urine Opiates Screen Neg (NEG) Urine Methadone Screen Neg (NEG) Urine Barbiturates Neg (NEG) Urine Phencyclidine Screen Neg (NEG) Urine Amphetamine/Methamphetamine Neg (NEG) Urine Benzodiazepines Screen Neg (NEG) Urine Cocaine Screen Neg (NEG) Urine Cannabinoids Screen Pos (NEG) Urine Ethyl Alcohol Neg (NEG) Test 02/11/22 09:25 Troponin I High Sensitivity 456 ng/L (4-75) H Laboratory Tests 02/11/22 01:58 Laboratory Tests 02/11/22 01:58 ECHOCARDIOGRAM ECHOCARDIOGRAM <Conclusion> The left ventricle is normal size. The systolic function is mildly impaired. The Ejection Fraction is 40-45%. There is slight global hypokinesis of the left ventricle. There is moderate concentric left ventricular hypertrophy. Doppler and Color Flow revealed no significant aortic regurgitation. There is no significant aortic valvular stenosis. Doppler and Color Flow revealed no mitral valve regurgitation noted. Doppler and Color Flow revealed trace tricuspid regurgitation with an estimated PAP of 23 mmHg. DATE: 03/19/21 [id number] ASSESSMENT/PLAN ASSESSMENT/PLAN 1. Acute on chronic combined diastolic/systolic CHF 2. Malignant HTN 3. suspect CKD3 4. NSTEMI: suspect demand mediated, type 2. No CP 5. Marijuana and tobacco use 6. Poor treatment compliance 7. Hyperlipidemia Recommendations 1. Start norvasc, coreg. Lasix therapy. Add ACEi per BP trend 2. ASA. statin 3. TTE, TSH 4. Outpt ischemic w/u. Discussed treatment compliance. follow up with Dr. Bishop on March 17 at 1030 AM. 5. Smoking and marijuana cessation COLT BISHOP MD 02/11/22 1517: CARDIAC CONSULT ASSESSMENT/PLAN ASSESSMENT/PLAN Patient seen and examined He is feeling mildly better this afternoon. I agree with our nurse practitioners assessment and plan. Acute on chronic combined diastolic/systolic CHF. Restarting baseline med ications as above. Malignant HTN. Medications as above. We will possibly add an TAY inhibitor based on clinical response. suspect CKD3. Monitoring lab. NSTEMI: suspect demand mediated, type 2. No CP. Aspirin. Outpatient work-up and follow-up. Marijuana and tobacco use Poor treatment compliance Hyperlipidemia. Statin. LATANYA JARAMILLO CARE TECH Feb 11, 2022 10:56 COLT BISHOP MD Feb 11, 2022 15:17
--- NOTE | 2022-02-11 11:25 | NUR ---
SS following for discharge planning. SS reviewed pt chart and discussed with pt RN. Pt is from home and is currently on room air. Cardiology following. SS will continue to follow for discharge planning.
[2022-02-11] MEDS: HEPARIN for SUB-Q USE 5,000 UNIT/ML VIAL. SQ SCH ×2 (15:49→22:48)
--- NOTE | 2022-02-11 17:37 | CARD ---
MR#: [id number] Date of Study: 02/11/2022 Ordering Physician: LATANYA JARAMILLO, Referring Physician: LATANYA JARAMILLO Tech: Sandeep Hernandez [facility] APPROVED REPORT EXAM: Two-dimensional and M-mode echocardiogram with Doppler and color Doppler. Other Information Quality : AverageHR: 81bpm Rhythm : NSR INDICATION Congestive Heart Failure RISK FACTORS Hypertension Smoking 2D DIMENSIONS Left Atrium(2D)5.0 (1.6-4.0cm)IVSd1.4 (0.7-1.1cm) Aortic Root(2D)3.6 (2.0-3.7cm)LVDd5.8 (3.9-5.9cm) LVOT Diameter2.2 (1.8-2.4cm)PWd1.5 (0.7-1.1cm) LA [id number] (18-58mL)LVDs5.2 (2.5-4.0cm) FS (%) 10.0 %SV36.1 ml Aortic Valve AoV Peak Roshan.68.9cm/sAoV VTI9.8cm AO Peak GR.1.9mmHgLVOT Peak Roshan.53.2cm/s AO Mean GR.1mmHgAVA (VMAX)2.95cm2 Mitral Valve MV E Bnuercnh99.5cm/sMV DECEL [id number] MV A Kgzjsyug69.2cm/sE/A Ratio3.6 Pulmonary Valve PV Peak Woodleuw61.2cm/s Tricuspid Valve TR P. Qfawrhyn419tw/sTR Peak Gr.35mmHg Pulmonary Vein S1 Yboqxwan68.4cm/sD2 Joeafsxd22.2cm/s LEFT VENTRICLE The Left Ventricle is mildly dilated. There is moderate concentric left ventricular hypertrophy. The LV ejection fraction is severely impaired. The Ejection Fraction is <20%. There is severe global hypo kinesis of the left ventricle. There is a possible thrombus in the apical wall. Transmitral Doppler f low pattern is Grade III-reversible restrictive diastolic dysfunction. No left ventricle thrombus not ed on this study. There is no ventricular septal defect visualized. There is no left ventricular aneu rysm. There is no mass noted in the left ventricle. RIGHT VENTRICLE The right ventricle is normal size. There is normal right ventricular wall thickness. Systolic functi on is borderline reduced. ATRIA The left atrium is moderately dilated. The right atrium is mildly dilated. The interatrial septum is intact with no evidence for an atrial septal defect or patent foramen ovale as noted on 2-D or Dopple r imaging. AORTIC VALVE The aortic valve is normal in structure and function. The aortic valve is trileaflet. Doppler and Col or Flow revealed no significant aortic regurgitation. There is no significant aortic valvular stenosi s. There is no aortic valvular vegetation. MITRAL VALVE The mitral valve is normal in structure and function. There is no evidence of mitral valve prolapse. There is no mitral valve stenosis. Doppler and Color-flow revealed mild mitral regurgitation. TRICUSPID VALVE The tricuspid valve is normal in structure and function. Doppler and Color Flow revealed trace tricus pid regurgitation. There is no tricuspid valve prolapse or vegetation. There is no tricuspid valve st enosis. PULMONIC VALVE The pulmonary valve is normal in structure and function. Doppler and Color Flow revealed no pulmonic valvular regurgitation. There is no pulmonic valvular stenosis. GREAT VESSELS The aortic root is normal in size. The ascending aorta is normal in size. The pulmonary artery is nor mal. The IVC is normal in size and collapses >50% with inspiration. PERICARDIAL EFFUSION There is no pleural effusion. There is no evidence of significant pericardial effusion. Critical Notification Critical Value: No <Conclusion> The Left Ventricle is mildly dilated. The LV ejection fraction is severely impaired. The Ejection Fraction is <20%. There is severe global hypokinesis of the left ventricle. There is a possible thrombus in the apical wall. There is moderate concentric left ventricular hypertrophy. Doppler and Color Flow revealed no significant aortic regurgitation. There is no significant aortic valvular stenosis. Doppler and Color-flow revealed mild mitral regurgitation. Doppler and Color Flow revealed trace tricuspid regurgitation. Signed by : Julien Bishop MD Electronically Approved : 02/11/2022 17:36:36
[2022-02-11] MEDS: ATORVASTATIN CALCIUM 20 MG TABLET PO SCH (21:15)
[2022-02-12] VITALS (7 sets, daily range): BP systolic 145–175; BP diastolic 103–123
[2022-02-12] MEDS: LABETALOL 20 MG/4 ML DISP.SYRIN. IVP PRN ×2 (03:46→08:28)
[2022-02-12 04:57] LABS: BASO % 1 % (0-3); EOS # 0.2 x10^3/uL (0.0-0.7); EOS % 5 % (0-3); HEMOGLOBIN 13.8 g/dL (13.0-17.5); LYMPH # 1.4 x10^3/uL (1.0-4.8); LYMPH % 37 % (24-48); MEAN CORPUSCULAR HEMOGLOBIN 25 pg (25-35); MEAN CORPUSCULAR HGB CONC 33 g/dL (31-37); MEAN CORPUSCULAR VOLUME 76 fL (79-100); MONO # 0.3 x10^3/uL (0.0-1.1); MONO % 7 % (0-9); NEUT # 1.9 x10^3/uL (1.8-7.7); NEUT % 50 % (31-73); PLATELET COUNT 304 x10^3/uL (140-400); RED CELL DISTRIBUTION WIDTH 13.6 % (11.5-14.5); WHITE BLOOD COUNT 3.8 x10^3/uL (4.0-11.0)
[2022-02-12 05:27] LABS: ALBUMIN 2.7 g/dL (3.4-5.0); ALBUMIN/GLOBULIN RATIO 0.8 (1.0-1.7); CREATININE 1.9 mg/dL (0.7-1.3); GFR 50.6; POTASSIUM 4.1 mmol/L (3.5-5.1); TOTAL BILIRUBIN 0.5 mg/dL (0.2-1.0); TOTAL PROTEIN 6.3 g/dL (6.4-8.2)
[2022-02-12] MEDS: HEPARIN for SUB-Q USE 5,000 UNIT/ML VIAL. SQ SCH ×3 (05:58→21:06)
--- NOTE | 2022-02-12 07:30 | NUR ---
Patient assessed for elopement risk per elopement policy and procedure, patient not deemed a risk.
[2022-02-12] MEDS: ASPIRIN ENTERIC COATED 81 MG TABLET.DR. PO SCH (08:26)
[2022-02-12] MEDS: CARVEDILOL 6.25 MG TABLET. PO SCH ×2 (08:27→17:21)
--- NOTE | 2022-02-12 16:32 | PDOC ---
PROGRESS NOTES Date of Service DATE: 02/12/22 TIME: 16:28 Subjective Subjective Patient seen and examined He reports feeling better today with less shortness of breath. Objective Objective Vital Signs Date Time Temp Pulse Resp B/P (MAP) Pulse Ox O2 Delivery O2 Flow Rate FiO2 02/12/22 14:47 98.6 82 18 167/117 (134) 100 Room Air 98.6 02/11/22 20:00 2.0 Intake and Output 02/12/22 07:00 Intake Total 1280 ml Output Total 2533 ml Balance -1253 ml Intake Oral 1280 ml Output Urine Total 2533 ml # Voids 1 Physical Exam Abdomen: Normal bowel sounds Heart: Regular rate General: mild distress Lungs: Other (Mildly decreased breath sounds) Assessment Assessment Problems Medical Problems: (1) Accelerated hypertension Status: Acute (2) Acute exacerbation of congestive heart failure Status: Acute (3) Acute renal insufficiency Status: Acute (4) NSTEMI (non-ST elevated myocardial infarction) Status: Acute 1. Acute on chronic heart failure. Echocardiogram shows severely decreased ejection fraction at 15 to 20%. I did discuss this with the patient. We discussed a catheterization in the near future once his renal function has imp roved. We will continue medications for his cardiomyopathy. 2. Malignant HTN. Improving. 3. Suspect CKD3. Creatinine remains at 1.9. 4. NSTEMI: demand mediated, type 2. No CP 5. Marijuana and tobacco use 6. Poor treatment compliance. Discussed with the patient. 7. Hyperlipidemia. Statin. Comment Review of Relevant I have reviewed the following items cayetano (where applicable) has been applied. Labs Laboratory Tests Test 02/11/22 01:58 02/11/22 03:12 02/11/22 04:00 02/11/22 07:30 White Blood Count 5.6 x10^3/uL (4.0-11.0) Red Blood Count 5.42 x10^6/uL (4.30-5.70) Hemoglobin 13.8 g/dL (13.0-17.5) Hematocrit 41.3 % (39.0-53.0) Mean Corpuscular Volume 76 fL (79-100) Mean Corpuscular Hemoglobin 26 pg (25-35) Mean Corpuscular Hemoglobin Concent 34 g/dL (31-37) Red Cell Distribution Width 13.6 % (11.5-14.5) Platelet Count 344 x10^3/uL (140-400) Neutrophils (%) (Auto) 62 % (31-73) Lymphocytes (%) (Auto) 29 % (24-48) Monocytes (%) (Auto) 7 % (0-9) Eosinophils (%) (Auto) 2 % (0-3) Basophils (%) (Auto) 1 % (0-3) Neutrophils # (Auto) 3.5 x10^3/uL (1.8-7.7) Lymphocytes # (Auto) 1.6 x10^3/uL (1.0-4.8) Monocytes # (Auto) 0.4 x10^3/uL (0.0-1.1) Eosinophils # (Auto) 0.1 x10^3/uL (0.0-0.7) Basophils # (Auto) 0.1 x10^3/uL (0.0-0.2) Prothrombin Time 14.1 SEC (11.7-14.0) Prothromb Time International Ratio 1.1 (0.8-1.1) Activated Partial Thromboplast Time 32 SEC (24-38) Sodium Level 135 mmol/L (136-145) Potassium Level 4.3 mmol/L (3.5-5.1) Chloride Level 103 mmol/L (98-107) Carbon Dioxide Level 23 mmol/L (21-32) Anion Gap 9 (6-14) Blood Urea Nitrogen 31 mg/dL (8-26) Creatinine 1.9 mg/dL (0.7-1.3) Estimated GFR (Cockcroft-Gault) 50.6 BUN/Creatinine Ratio 16 (6-20) Glucose Level 101 mg/dL (70-99) Calcium Level 8.6 mg/dL (8.5-10.1) Total Bilirubin 0.5 mg/dL (0.2-1.0) Aspartate Amino Transf (AST/SGOT) 84 U/L (15-37) Alanine Aminotransferase (ALT/SGPT) 161 U/L (16-63) Alkaline Phosphatase 137 U/L (46-116) Troponin I High Sensitivity 603 ng/L (4-75) 601 ng/L (4-75) 549 ng/L (4-75) JC-Lfe-[id number]-Type Natriuretic Peptide 6311 pg/mL (0-124) Total Protein 6.6 g/dL (6.4-8.2) Albumin 2.8 g/dL (3.4-5.0) Albumin/Globulin Ratio 0.7 (1.0-1.7) Triglycerides Level 73 mg/dL (0-150) Cholesterol Level 164 mg/dL (0-200) LDL Cholesterol, Calculated 112 mg/dL (0-100) VLDL Cholesterol, Calculated 15 mg/dL (0-40) Non-HDL Cholesterol Calculated 127 mg/dL (0-129) HDL Cholesterol 37 mg/dL (40-60) Cholesterol/HDL Ratio 4.4 Thyroid Stimulating Hormone (TSH) 2.622 uIU/mL (0.358-3.74) Ethyl Alcohol Level < 10 mg/dL (0-10) Urine Opiates Screen Neg (NEG) Urine Methadone Screen Neg (NEG) Urine Barbiturates Neg (NEG) Urine Phencyclidine Screen Neg (NEG) Urine Amphetamine/Methamphetamine Neg (NEG) Urine Benzodiazepines Screen Neg (NEG) Urine Cocaine Screen Neg (NEG) Urine Cannabinoids Screen Pos (NEG) Urine Ethyl Alcohol Neg (NEG) Test 02/11/22 09:25 02/11/22 12:50 02/12/22 04:30 Troponin I High Sensitivity 456 ng/L (4-75) 463 ng/L (4-75) White Blood Count 3.8 x10^3/uL (4.0-11.0) Red Blood Count 5.50 x10^6/uL (4.30-5.70) Hemoglobin 13.8 g/dL (13.0-17.5) Hematocrit 42.0 % (39.0-53.0) Mean Corpuscular Volume 76 fL (79-100) Mean Corpuscular Hemoglobin 25 pg (25-35) Mean Corpuscular Hemoglobin Concent 33 g/dL (31-37) Red Cell Distribution Width 13.6 % (11.5-14.5) Platelet Count 304 x10^3/uL (140-400) Neutrophils (%) (Auto) 50 % (31-73) Lymphocytes (%) (Auto) 37 % (24-48) Monocytes (%) (Auto) 7 % (0-9) Eosinophils (%) (Auto) 5 % (0-3) Basophils (%) (Auto) 1 % (0-3) Neutrophils # (Auto) 1.9 x10^3/uL (1.8-7.7) Lymphocytes # (Auto) 1.4 x10^3/uL (1.0-4.8) Monocytes # (Auto) 0.3 x10^3/uL (0.0-1.1) Eosinophils # (Auto) 0.2 x10^3/uL (0.0-0.7) Basophils # (Auto) 0.0 x10^3/uL (0.0-0.2) Sodium Level 137 mmol/L (136-145) Potassium Level 4.1 mmol/L (3.5-5.1) Chloride Level 103 mmol/L (98-107) Carbon Dioxide Level 27 mmol/L (21-32) Anion Gap 7 (6-14) Blood Urea Nitrogen 27 mg/dL (8-26) Creatinine 1.9 mg/dL (0.7-1.3) Estimated GFR (Cockcroft-Gault) 50.6 BUN/Creatinine Ratio 14 (6-20) Glucose Level 99 mg/dL (70-99) Calcium Level 9.0 mg/dL (8.5-10.1) Total Bilirubin 0.5 mg/dL (0.2-1.0) Aspartate Amino Transf (AST/SGOT) 41 U/L (15-37) Alanine Aminotransferase (ALT/SGPT) 125 U/L (16-63) Alkaline Phosphatase 126 U/L (46-116) Total Protein 6.3 g/dL (6.4-8.2) Albumin 2.7 g/dL (3.4-5.0) Albumin/Globulin Ratio 0.8 (1.0-1.7) Laboratory Tests Test 02/12/22 04:30 White Blood Count 3.8 x10^3/uL (4.0-11.0) Red Blood Count 5.50 x10^6/uL (4.30-5.70) Hemoglobin 13.8 g/dL (13.0-17.5) Hematocrit 42.0 % (39.0-53.0) Mean Corpuscular Volume 76 fL (79-100) Mean Corpuscular Hemoglobin 25 pg (25-35) Mean Corpuscular Hemoglobin Concent 33 g/dL (31-37) Red Cell Distribution Width 13.6 % (11.5-14.5) Platelet Count 304 x10^3/uL (140-400) Neutrophils (%) (Auto) 50 % (31-73) Lymphocytes (%) (Auto) 37 % (24-48) Monocytes (%) (Auto) 7 % (0-9) Eosinophils (%) (Auto) 5 % (0-3) Basophils (%) (Auto) 1 % (0-3) Neutrophils # (Auto) 1.9 x10^3/uL (1.8-7.7) Lymphocytes # (Auto) 1.4 x10^3/uL (1.0-4.8) Monocytes # (Auto) 0.3 x10^3/uL (0.0-1.1) Eosinophils # (Auto) 0.2 x10^3/uL (0.0-0.7) Basophils # (Auto) 0.0 x10^3/uL (0.0-0.2) Sodium Level 137 mmol/L (136-145) Potassium Level 4.1 mmol/L (3.5-5.1) Chloride Level 103 mmol/L (98-107) Carbon Dioxide Level 27 mmol/L (21-32) Anion Gap 7 (6-14) Blood Urea Nitrogen 27 mg/dL (8-26) Creatinine 1.9 mg/dL (0.7-1.3) Estimated GFR (Cockcroft-Gault) 50.6 BUN/Creatinine Ratio 14 (6-20) Glucose Level 99 mg/dL (70-99) Calcium Level 9.0 mg/dL (8.5-10.1) Total Bilirubin 0.5 mg/dL (0.2-1.0) Aspartate Amino Transf (AST/SGOT) 41 U/L (15-37) Alanine Aminotransferase (ALT/SGPT) 125 U/L (16-63) Alkaline Phosphatase 126 U/L (46-116) Total Protein 6.3 g/dL (6.4-8.2) Albumin 2.7 g/dL (3.4-5.0) Albumin/Globulin Ratio 0.8 (1.0-1.7) Medications Current Medications Nicardipine HCl 50 mg/Sodium Chloride 250 ml @ 50 mls/hr CONT PRN IV PER PROTOCOL Last administered on 02/11/22at 02:40; Start 02/11/22 at 02:15 Aspirin (Aspirin Chewable) 324 mg 1X ONCE PO Last administered on 02/11/22at 04:13; Start 02/11/22 at 03:30; Stop 02/11/22 at 03:31; Status DC Furosemide (Lasix) 40 mg 1X ONCE IVP Last administered on 02/11/22at 04:13; Start 02/11/22 at 03:30; Stop 02/11/22 at 03:31; Status DC Ondansetron HCl (Zofran) 4 mg PRN Q8HRS PRN IVP NAUSEA/VOMITING 1ST CHOICE; Start 02/11/22 at 03:45; Stop 02/11/22 at 16:31; Status DC Acetaminophen (Tylenol) 650 mg PRN Q4HRS PRN PO FEVER > 100.3'F; Start 02/11/22 at 03:45; Stop 02/11/22 at 16:31; Status DC Enoxaparin Sodium (Lovenox 100mg Syringe) 100 mg 1X ONCE SQ Last administered on 02/11/22at 04:13; Start 02/11/22 at 04:15; Stop 02/11/22 at 04:16; Status DC Amlodipine Besylate (Norvasc) 10 mg DAILY PO Last administered on 02/12/22at 08:27; Start 02/11/22 at 09:00 Carvedilol (Coreg) 6.25 mg BIDWMEALS PO Last administered on 02/12/22at 08:27; Start 02/11/22 at 09:00 Aspirin (Ecotrin) 81 mg DAILYWBKFT PO Last administered on 02/12/22at 08:26; Start 02/11/22 at 09:00 Labetalol HCl (Normodyne Iv Push) 20 mg PRN Q2HR PRN IVP HYPERTENSION Last administered on 02/12/22at 08:28; Start 02/11/22 at 08:30 Ondansetron HCl (Zofran) 4 mg PRN Q6HRS PRN IVP NAUSEA/VOMITING; Start 02/11/22 at 10:00 Calcium Carbonate/ Glycine (Tums) 500 mg PRN Q3HRS PRN PO UPSET STOMACH; Start 02/11/22 at 10:00 Zolpidem Tartrate (Ambien) 5 mg PRN QHS PRN PO INSOMNIA, MAY REPEAT IN 1HR; Start 02/11/22 at 10:00 Info (Non-Icu Electrolyte Protocol) 1 ea PRN DAILY PRN MC SEE COMMENTS; Start 02/11/22 at 10:00 Oxycodone/ Acetaminophen (Percocet 5/325) 1 tab PRN Q4HRS PRN PO MILD PAIN, 1ST CHOICE; Start 02/11/22 at 10:00 Oxycodone/ Acetaminophen (Percocet 5/325) 2 tab PRN Q4HRS PRN PO MODERATE PAIN, SEVERE PAIN; Start 02/11/22 at 10:00 Acetaminophen (Tylenol) 650 mg PRN Q6HRS PRN PO Headaches, Temp > 101.5F; Start 02/11/22 at 10:00 Heparin Sodium (Porcine) (Heparin Sodium) 5,000 unit Q8HRS SQ Last administered on 02/12/22at 13:47; Start 02/11/22 at 14:00 Atorvastatin Calcium (Lipitor) 20 mg QHS PO Last administered on 02/11/22at 21:15; Start 02/11/22 at 21:00 Active Scripts Active Reported No Known Medications Prior To Admisstion (Info) Each 1 Each MC 1X Vitals/I & O Vital Sign - Last 24 Hours 02/11/22 02/11/22 02/11/22 02/12/22 18:44 20:00 23:05 03:30 Temp 98.6 97.7 97.7 98.6 97.7 97.7 Pulse 82 80 83 Resp 16 18 18 B/P (MAP) 151/95 (113) 147/96 (113) 175/123 (140) Pulse Ox 97 96 94 O2 Delivery Room Air Nasal Cannula Room Air Room Air O2 Flow Rate 2.0 02/12/22 02/12/22 02/12/22 02/12/22 03:46 04:54 07:00 08:00 Temp 97.4 97.4 Pulse 86 79 83 Resp 18 B/P (MAP) 168/123 154/107 (123) 164/118 (133) Pulse Ox 99 O2 Delivery Room Air Room Air 02/12/22 02/12/22 02/12/22 02/12/22 08:27 08:27 08:28 10:35 Temp 97.5 97.5 Pulse 87 87 87 80 Resp 17 B/P (MAP) 168/133 168/133 168/133 145/107 (120) Pulse Ox 100 O2 Delivery Room Air 02/12/22 14:47 Temp 98.6 98.6 Pulse 82 Resp 18 B/P (MAP) 167/117 (134) Pulse Ox 100 O2 Delivery Room Air Intake and Output 02/11/22 02/11/22 02/12/22 15:00 23:00 07:00 Intake Total 540 ml 500 ml 240 ml Output Total 1908 ml 625 ml Balance -1368 ml -125 ml 240 ml Justifications for Admission Other Justification Hypertensive emergency COLT DOMINGUEZ MD Feb 12, 2022 16:32
[2022-02-12] MEDS: ATORVASTATIN CALCIUM 20 MG TABLET PO SCH (21:03)
--- NOTE | 2022-02-12 21:16 | PDOC ---
[facility] PROGRESS NOTE Date of Service DOS: DATE: 02/12/22 TIME: 21:13 Chief Complaint Chief Complaint Shortness of breath secondary to acute on chronic congestive heart failure systolic, hypertensive urgency following history. Acute kidney injury known hypertension. Noncompliance with medications -Presented with several days worsening shortness of breath and fluid overload. Known history of hypertension CHF -Systolic blood pressure greater than 200 on presentation eventually required Cardene drip. Off now -Cardene drip able to be weaned off. Cardiology consulted started patient on Coreg amlodipine and as needed labetalol -Echocardiogram ordered --> 15-20% EF -Does need more diuresis will need to balance this with impaired kidney function -DVT prophylaxis Heparin; troponins trending down -Cardiac diet fluid restriction -Up ad mary. History of Present Illness History of Present Illness 02/12 Patient evaluated examined at bedside. He was resting in bed nearly laying flat actually. Easily awoken and said his shortness of breath is improving a fair bit but does still have episodes. He said swelling has improved as well. Continue aggressive diuresis. Possible discharge tomorrow with outpatient follow-up. Cardiology recommendations reviewed. Vitals/I&O Vitals/I&O: Vital Signs Date Time Temp Pulse Resp B/P (MAP) Pulse Ox O2 Delivery O2 Flow Rate FiO2 02/12/22 19:20 98.0 88 18 155/103 (120) 98 Room Air 98.0 02/11/22 20:00 2.0 I & O 02/11/22 02/11/22 02/12/22 15:00 23:00 07:00 Intake Total 540 ml 500 ml 240 ml Output Total 1908 ml 625 ml Balance -1368 ml -125 ml 240 ml Physical Exam General: Alert, Oriented X3, Cooperative Heart: Regular rate Lungs: Clear Abdomen: Normal bowel sounds Extremities: Normal pulses Skin: No breakdown, No significant lesion Labs Labs: Laboratory Tests Test 02/12/22 04:30 White Blood Count 3.8 x10^3/uL (4.0-11.0) Red Blood Count 5.50 x10^6/uL (4.30-5.70) Hemoglobin 13.8 g/dL (13.0-17.5) Hematocrit 42.0 % (39.0-53.0) Mean Corpuscular Volume 76 fL (79-100) Mean Corpuscular Hemoglobin 25 pg (25-35) Mean Corpuscular Hemoglobin Concent 33 g/dL (31-37) Red Cell Distribution Width 13.6 % (11.5-14.5) Platelet Count 304 x10^3/uL (140-400) Neutrophils (%) (Auto) 50 % (31-73) Lymphocytes (%) (Auto) 37 % (24-48) Monocytes (%) (Auto) 7 % (0-9) Eosinophils (%) (Auto) 5 % (0-3) Basophils (%) (Auto) 1 % (0-3) Neutrophils # (Auto) 1.9 x10^3/uL (1.8-7.7) Lymphocytes # (Auto) 1.4 x10^3/uL (1.0-4.8) Monocytes # (Auto) 0.3 x10^3/uL (0.0-1.1) Eosinophils # (Auto) 0.2 x10^3/uL (0.0-0.7) Basophils # (Auto) 0.0 x10^3/uL (0.0-0.2) Sodium Level 137 mmol/L (136-145) Potassium Level 4.1 mmol/L (3.5-5.1) Chloride Level 103 mmol/L (98-107) Carbon Dioxide Level 27 mmol/L (21-32) Anion Gap 7 (6-14) Blood Urea Nitrogen 27 mg/dL (8-26) Creatinine 1.9 mg/dL (0.7-1.3) Estimated GFR (Cockcroft-Gault) 50.6 BUN/Creatinine Ratio 14 (6-20) Glucose Level 99 mg/dL (70-99) Calcium Level 9.0 mg/dL (8.5-10.1) Total Bilirubin 0.5 mg/dL (0.2-1.0) Aspartate Amino Transf (AST/SGOT) 41 U/L (15-37) Alanine Aminotransferase (ALT/SGPT) 125 U/L (16-63) Alkaline Phosphatase 126 U/L (46-116) Total Protein 6.3 g/dL (6.4-8.2) Albumin 2.7 g/dL (3.4-5.0) Albumin/Globulin Ratio 0.8 (1.0-1.7) Assessment and Plan Assessmemt and Plan Problems Medical Problems: (1) Accelerated hypertension Status: Acute (2) Acute exacerbation of congestive heart failure Status: Acute (3) Acute renal insufficiency Status: Acute (4) NSTEMI (non-ST elevated myocardial infarction) Status: Acute Comment Review of Relevant I have reviewed the following items cayetano (where applicable) has been applied. Justifications for Admission Other Justification Hypertensive emergency HAYDEN HUTSON MD Feb 12, 2022 21:16
[2022-02-13] VITALS (7 sets, daily range): BP systolic 155–178; BP diastolic 98–132
[2022-02-13 04:50] LABS: CALCIUM 8.4 mg/dL (8.5-10.1); CREATININE 1.7 mg/dL (0.7-1.3); GFR 57.5; POTASSIUM 4.2 mmol/L (3.5-5.1)
[2022-02-13] MEDS: HEPARIN for SUB-Q USE 5,000 UNIT/ML VIAL. SQ SCH ×3 (05:11→21:04)
--- NOTE | 2022-02-13 07:00 | NUR ---
Patient assessed for elopement risk per elopement policy and procedure, patient not deemed a risk.
[2022-02-13] MEDS: CARVEDILOL 6.25 MG TABLET. PO SCH ×2 (07:45→16:31)
[2022-02-13] MEDS: ASPIRIN ENTERIC COATED 81 MG TABLET.DR. PO SCH (07:45)
[2022-02-13] MEDS: LABETALOL 20 MG/4 ML DISP.SYRIN. IVP PRN ×3 (07:47→21:03)
--- NOTE | 2022-02-13 12:52 | PDOC ---
[facility] PROGRESS NOTE Date of Service DOS: DATE: 02/13/22 TIME: 12:51 Chief Complaint Chief Complaint Shortness of breath secondary to acute on chronic congestive heart failure systolic, hypertensive urgency following history. Acute kidney injury known hypertension. Noncompliance with medications -Presented with several days worsening shortness of breath and fluid overload. Known history of hypertension CHF -Systolic blood pressure greater than 200 on presentation eventually required Cardene drip. Off now -Cardene drip able to be weaned off. Cardiology consulted started patient on Coreg amlodipine and as needed labetalol -Echocardiogram ordered --> 15-20% EF -Does need more diuresis will need to balance this with impaired kidney function -DVT prophylaxis Heparin; troponins trending down -Cardiac diet fluid restriction -Up ad mary. History of Present Illness History of Present Illness 02/13 Patient evaluated examined at bedside. Up in chair doing well. Breathing improving but still some ongoing shortness of breath. We will keep overnight 1 more today for further diuresis. Sounds like planning on event monitor on discharge? Patient agreeable to staying again tonight. Cardiology recommendations reviewed. Discussed with bedside RN. 02/12 Patient evaluated examined at bedside. He was resting in bed nearly laying flat actually. Easily awoken and said his shortness of breath is improving a fair bit but does still have episodes. He said swelling has improved as well. Continue aggressive diuresis. Possible discharge tomorrow with outpatient follow-up. Cardiology recommendations reviewed. Vitals/I&O Vitals/I&O: Vital Signs Date Time Temp Pulse Resp B/P (MAP) Pulse Ox O2 Delivery O2 Flow Rate FiO2 02/13/22 11:23 87 155/110 02/13/22 10:34 98.0 17 99 Room Air 98.0 02/12/22 20:00 2.0 I & O 02/12/22 02/12/22 02/13/22 15:00 23:00 07:00 Intake Total 360 ml 180 ml 100 ml Balance 360 ml 180 ml 100 ml Physical Exam General: Alert, Oriented X3, Cooperative Heart: Regular rate Lungs: Clear Abdomen: Normal bowel sounds Extremities: Normal pulses Skin: No breakdown, No significant lesion Labs Labs: Laboratory Tests Test 02/13/22 04:00 Sodium Level 137 mmol/L (136-145) Potassium Level 4.2 mmol/L (3.5-5.1) Chloride Level 104 mmol/L (98-107) Carbon Dioxide Level 26 mmol/L (21-32) Anion Gap 7 (6-14) Blood Urea Nitrogen 25 mg/dL (8-26) Creatinine 1.7 mg/dL (0.7-1.3) Estimated GFR (Cockcroft-Gault) 57.5 Glucose Level 96 mg/dL (70-99) Calcium Level 8.4 mg/dL (8.5-10.1) Assessment and Plan Assessmemt and Plan Problems Medical Problems: (1) Accelerated hypertension Status: Acute (2) Acute exacerbation of congestive heart failure Status: Acute (3) Acute renal insufficiency Status: Acute (4) NSTEMI (non-ST elevated myocardial infarction) Status: Acute Comment Review of Relevant I have reviewed the following items cayetano (where applicable) has been applied. Justifications for Admission Other Justification Hypertensive emergency HAYDEN HUTSON MD Feb 13, 2022 12:52
--- NOTE | 2022-02-13 14:56 | PDOC ---
PROGRESS NOTES Date of Service DATE: 02/13/22 TIME: 14:53 Subjective Subjective Patient seen and examined Objective Objective Vital Signs Date Time Temp Pulse Resp B/P (MAP) Pulse Ox O2 Delivery O2 Flow Rate FiO2 02/13/22 11:23 87 155/110 02/13/22 10:34 98.0 17 99 Room Air 98.0 02/12/22 20:00 2.0 Intake and Output 02/13/22 07:00 Intake Total 640 ml Balance 640 ml Intake Oral 640 ml # Voids 2 Physical Exam Abdomen: Normal bowel sounds Heart: Regular rate General: No acute distress Lungs: Other (Minimally decreased breath sounds) Assessment Assessment Problems Medical Problems: (1) Accelerated hypertension Status: Acute (2) Acute exacerbation of congestive heart failure Status: Acute (3) Acute renal insufficiency Status: Acute (4) NSTEMI (non-ST elevated myocardial infarction) Status: Acute 1. Acute on chronic heart failure. Echocardiogram shows severely decreased ejection fraction at 15 to 20%. The patient is clinically improving on his present medications. We have previously discussed up upcoming cardiac catheterization once his renal function has improved. Also today we discussed a LifeVest for treatment of his higher risk of severe arrhythmias. He has agreed to a LifeVest. We will have 1 placed tomorrow and following this the patient presents probably be discharged. We will follow-up in the office with an ischemia work-up and monitor his LV function to determine if he will require an ICD. 2. Malignant HTN. Improving. 3. Suspect CKD3. Creatinine mildly improved. 4. NSTEMI: demand mediated, type 2. No CP. Treatment as above. 5. Marijuana and tobacco use 6. Poor treatment compliance. Discussed with the patient. 7. Hyperlipidemia. Statin. Comment Review of Relevant I have reviewed the following items cayetano (where applicable) has been applied. Labs Laboratory Tests Test 02/12/22 04:30 02/13/22 04:00 White Blood Count 3.8 x10^3/uL (4.0-11.0) Red Blood Count 5.50 x10^6/uL (4.30-5.70) Hemoglobin 13.8 g/dL (13.0-17.5) Hematocrit 42.0 % (39.0-53.0) Mean Corpuscular Volume 76 fL (79-100) Mean Corpuscular Hemoglobin 25 pg (25-35) Mean Corpuscular Hemoglobin Concent 33 g/dL (31-37) Red Cell Distribution Width 13.6 % (11.5-14.5) Platelet Count 304 x10^3/uL (140-400) Neutrophils (%) (Auto) 50 % (31-73) Lymphocytes (%) (Auto) 37 % (24-48) Monocytes (%) (Auto) 7 % (0-9) Eosinophils (%) (Auto) 5 % (0-3) Basophils (%) (Auto) 1 % (0-3) Neutrophils # (Auto) 1.9 x10^3/uL (1.8-7.7) Lymphocytes # (Auto) 1.4 x10^3/uL (1.0-4.8) Monocytes # (Auto) 0.3 x10^3/uL (0.0-1.1) Eosinophils # (Auto) 0.2 x10^3/uL (0.0-0.7) Basophils # (Auto) 0.0 x10^3/uL (0.0-0.2) Sodium Level 137 mmol/L (136-145) 137 mmol/L (136-145) Potassium Level 4.1 mmol/L (3.5-5.1) 4.2 mmol/L (3.5-5.1) Chloride Level 103 mmol/L (98-107) 104 mmol/L (98-107) Carbon Dioxide Level 27 mmol/L (21-32) 26 mmol/L (21-32) Anion Gap 7 (6-14) 7 (6-14) Blood Urea Nitrogen 27 mg/dL (8-26) 25 mg/dL (8-26) Creatinine 1.9 mg/dL (0.7-1.3) 1.7 mg/dL (0.7-1.3) Estimated GFR (Cockcroft-Gault) 50.6 57.5 BUN/Creatinine Ratio 14 (6-20) Glucose Level 99 mg/dL (70-99) 96 mg/dL (70-99) Calcium Level 9.0 mg/dL (8.5-10.1) 8.4 mg/dL (8.5-10.1) Total Bilirubin 0.5 mg/dL (0.2-1.0) Aspartate Amino Transf (AST/SGOT) 41 U/L (15-37) Alanine Aminotransferase (ALT/SGPT) 125 U/L (16-63) Alkaline Phosphatase 126 U/L (46-116) Total Protein 6.3 g/dL (6.4-8.2) Albumin 2.7 g/dL (3.4-5.0) Albumin/Globulin Ratio 0.8 (1.0-1.7) Laboratory Tests Test 02/13/22 04:00 Sodium Level 137 mmol/L (136-145) Potassium Level 4.2 mmol/L (3.5-5.1) Chloride Level 104 mmol/L (98-107) Carbon Dioxide Level 26 mmol/L (21-32) Anion Gap 7 (6-14) Blood Urea Nitrogen 25 mg/dL (8-26) Creatinine 1.7 mg/dL (0.7-1.3) Estimated GFR (Cockcroft-Gault) 57.5 Glucose Level 96 mg/dL (70-99) Calcium Level 8.4 mg/dL (8.5-10.1) Medications Current Medications Nicardipine HCl 50 mg/Sodium Chloride 250 ml @ 50 mls/hr CONT PRN IV PER PROTOCOL Last administered on 02/11/22at 02:40; Start 02/11/22 at 02:15 Aspirin (Aspirin Chewable) 324 mg 1X ONCE PO Last administered on 02/11/22at 04:13; Start 02/11/22 at 03:30; Stop 02/11/22 at 03:31; Status DC Furosemide (Lasix) 40 mg 1X ONCE IVP Last administered on 02/11/22at 04:13; Start 02/11/22 at 03:30; Stop 02/11/22 at 03:31; Status DC Ondansetron HCl (Zofran) 4 mg PRN Q8HRS PRN IVP NAUSEA/VOMITING 1ST CHOICE; Start 02/11/22 at 03:45; Stop 02/11/22 at 16:31; Status DC Acetaminophen (Tylenol) 650 mg PRN Q4HRS PRN PO FEVER > 100.3'F; Start 02/11/22 at 03:45; Stop 02/11/22 at 16:31; Status DC Enoxaparin Sodium (Lovenox 100mg Syringe) 100 mg 1X ONCE SQ Last administered on 02/11/22at 04:13; Start 02/11/22 at 04:15; Stop 02/11/22 at 04:16; Status DC Amlodipine Besylate (Norvasc) 10 mg DAILY PO Last administered on 02/13/22at 07:46; Start 02/11/22 at 09:00 Carvedilol (Coreg) 6.25 mg BIDWMEALS PO Last administered on 02/13/22at 07:45; Start 02/11/22 at 09:00 Aspirin (Ecotrin) 81 mg DAILYWBKFT PO Last administered on 02/13/22at 07:45; Start 02/11/22 at 09:00 Labetalol HCl (Normodyne Iv Push) 20 mg PRN Q2HR PRN IVP HYPERTENSION Last administered on 02/13/22at 11:23; Start 02/11/22 at 08:30 Ondansetron HCl (Zofran) 4 mg PRN Q6HRS PRN IVP NAUSEA/VOMITING; Start 02/11/22 at 10:00 Calcium Carbonate/ Glycine (Tums) 500 mg PRN Q3HRS PRN PO UPSET STOMACH; Start 02/11/22 at 10:00 Zolpidem Tartrate (Ambien) 5 mg PRN QHS PRN PO INSOMNIA, MAY REPEAT IN 1HR; Start 02/11/22 at 10:00 Info (Non-Icu Electrolyte Protocol) 1 ea PRN DAILY PRN MC SEE COMMENTS; Start 02/11/22 at 10:00 Oxycodone/ Acetaminophen (Percocet 5/325) 1 tab PRN Q4HRS PRN PO MILD PAIN, 1ST CHOICE; Start 02/11/22 at 10:00 Oxycodone/ Acetaminophen (Percocet 5/325) 2 tab PRN Q4HRS PRN PO MODERATE PAIN, SEVERE PAIN; Start 02/11/22 at 10:00 Acetaminophen (Tylenol) 650 mg PRN Q6HRS PRN PO Headaches, Temp > 101.5F; Start 02/11/22 at 10:00 Heparin Sodium (Porcine) (Heparin Sodium) 5,000 unit Q8HRS SQ Last administered on 02/13/22at 14:12; Start 02/11/22 at 14:00 Atorvastatin Calcium (Lipitor) 20 mg QHS PO Last administered on 02/12/22at 21:03; Start 02/11/22 at 21:00 Active Scripts Active Reported No Known Medications Prior To Admisstion (Info) Each 1 Each 1X Vitals/I & O Vital Sign - Last 24 Hours 02/12/22 02/12/22 02/12/22 02/12/22 17:21 19:20 20:00 22:53 Temp 98.0 97.8 98.0 97.8 Pulse 82 88 84 Resp 18 18 B/P (MAP) 167/117 155/103 (120) 155/106 (122) Pulse Ox 98 98 O2 Delivery Room Air Nasal Cannula Room Air O2 Flow Rate 2.0 02/13/22 02/13/22 02/13/22 02/13/22 03:09 07:00 07:45 07:46 Temp 97.8 98.3 97.8 98.3 Pulse 84 86 82 82 Resp 17 B/P (MAP) 158/106 (123) 178/132 (147) 197/130 197/130 Pulse Ox 98 100 O2 Delivery Room Air Room Air 02/13/22 02/13/22 02/13/22 02/13/22 07:47 07:53 10:34 10:40 Temp 98.0 98.0 Pulse 82 87 Resp 17 B/P (MAP) 197/130 166/123 (137) 155/110 (125) Pulse Ox 99 O2 Delivery Room Air Room Air 02/13/22 11:23 Pulse 87 B/P (MAP) 155/110 Intake and Output 02/12/22 02/12/22 02/13/22 15:00 23:00 07:00 Intake Total 360 ml 180 ml 100 ml Balance 360 ml 180 ml 100 ml Justifications for Admission Other Justification Hypertensive emergency COLT DOMINGUEZ MD Feb 13, 2022 14:56
[2022-02-13] MEDS: ATORVASTATIN CALCIUM 20 MG TABLET PO SCH (21:02)
[2022-02-14 02:50] VITALS: BP 163/117
[2022-02-14] MEDS: HEPARIN for SUB-Q USE 5,000 UNIT/ML VIAL. SQ SCH (06:43)
[2022-02-14] MEDS: LABETALOL 20 MG/4 ML DISP.SYRIN. IVP PRN (06:44)
[2022-02-14 07:00] VITALS: BP 140/97
[2022-02-14] MEDS: ASPIRIN ENTERIC COATED 81 MG TABLET.DR. PO SCH (08:29)
[2022-02-14] MEDS: CARVEDILOL 6.25 MG TABLET. PO SCH ×2 (08:30→16:06)
--- NOTE | 2022-02-14 09:43 | NUR ---
SS following up with discharge planning. SS reviewed pt chart and discussed with pt RN. Pt is currently on room air. Cardiology following. SS received notification that pt will need a Life Vest. No order received at this time. Clinical phoned and faxed to [employer], ; fax [phone]. SS will continue to follow for discharge planning. Addendum: 02/14/22 at 1318 by COLIN MOHAMUD SS Order and updated progress note was sent to [facility]. Currently awaiting approval at this time.
[2022-02-14 10:20] VITALS: BP 148/104
--- NOTE | 2022-02-14 11:22 | PDOC ---
LESLIE CABA APRN 02/14/22 1122: CARDIO Progress Notes Date and Time Date of Service 02/14/22 Time of Evaluation 1115 Subjective Subjective: No Chest Pain, No shortness of breath, No Palpitations Vitals Vitals Vital Signs Date Time Temp Pulse Resp B/P (MAP) Pulse Ox O2 Delivery O2 Flow Rate FiO2 02/14/22 10:20 97.4 83 16 148/104 (119) 99 Room Air 97.4 Weight Weight [ ] Input and Output Intake and Output Intake and Output 02/14/22 07:00 Intake Total 1300 ml Balance 1300 ml Intake Oral 1300 ml # Voids 2 Physical Exam HEENT: Neck Supple W Full Motion Chest: Symmetric LUNGS: Clear to Auscultation Heart: RRR Abdomen: Soft N/T Extremities: No Edema Neurology: alert, oriented, follow commands Assessment Assessment 1. Acute on chronic systolic CHF; appears compensation for diuresis 2. Severe cardiomyopathy; Echo with LVEF 15-20% with possible thrombus in the apical wall. 3. Malignant HTN 4. ROSETTA on CKD; Cr better 5. NSTEMI: demand mediated, type 2. CP free 6. Marijuana and tobacco use; discussed/encouraged cessation 7. Poor treatment compliance; 8. Hyperlipidemia; statin Recommendations HF optimization Add low dose losartan- convert to Entresto on an outpatient basis LifeVest Discussed 2000cc FR and 2 Gm Na restriction along with daily weight monitoring. Add Xarelto given concerns for possible apical thrombus Outpatient ischemic evaluation Reinforced importance of compliance Follow up in our office with Dr. Dominguez Reassess LV function in 3 months to assess need for AICD implantation Justicifation of Admission Dx: Justifications for Admission: Justification of Admission Dx: Yes COLT DOMINGUEZ MD 02/14/22 1850: CARDIO Progress Notes Assessment Assessment Patient seen and examined The patient is feeling well today. I agree with our nurse practitioners assessment and plan. Acute on chronic systolic CHF; compensated. Continuing present treatment. Severe cardiomyopathy; Echo with LVEF 15-20% with possible thrombus in the apical wall. We will add Xarelto. LifeVest being placed today. Office follow- up. Malignant HTN. Under better control. ROSETTA on CKD; Cr better NSTEMI: demand mediated, type 2. CP free Marijuana and tobacco use; discussed/encouraged cessation Poor treatment compliance; discussed with the patient. Hyperlipidemia; statin LESLIE CABA APRN Feb 14, 2022 11:22 COLT DOMINGUEZ MD Feb 14, 2022 18:50
[2022-02-14] MEDS ORDERED: LISINOPRIL 5 MG TABLET. PO SCH (12:00)
[2022-02-14] MEDS ORDERED: RIVAROXABAN 10 MG TABLET. PO SCH (13:00)
--- NOTE | 2022-02-14 14:12 | PDOC ---
[facility] PROGRESS NOTE Date of Service DOS: DATE: 02/14/22 TIME: 14:10 Chief Complaint Chief Complaint Shortness of breath secondary to acute on chronic congestive heart failure systolic, hypertensive urgency following history. Acute kidney injury known hypertension. Noncompliance with medications -Presented with several days worsening shortness of breath and fluid overload. Known history of hypertension CHF -Systolic blood pressure greater than 200 on presentation eventually required Cardene drip. Off now -Cardene drip able to be weaned off. Cardiology consulted started patient on Coreg amlodipine and as needed labetalol -Echocardiogram ordered --> 15-20% EF -Does need more diuresis will need to balance this with impaired kidney function -DVT prophylaxis Heparin; troponins trending down -Cardiac diet fluid restriction -Up ad mary. History of Present Illness History of Present Illness 02/14: Patient seen and evaluated. No complaints today, breathing comfortably on room air. He was discharged home on Xarelto, carvedilol, and losartan. He will follow-up with cardiology and later switch to Entresto. Prior to discharge today he will be fitted for LifeVest. Greater than 30 minutes spent managing the discharge of this patient. 02/13 Patient evaluated examined at bedside. Up in chair doing well. Breathing improving but still some ongoing shortness of breath. We will keep overnight 1 more today for further diuresis. Sounds like planning on event monitor on discharge? Patient agreeable to staying again tonight. Cardiology recommendations reviewed. Discussed with bedside RN. 02/12 Patient evaluated examined at bedside. He was resting in bed nearly laying flat actually. Easily awoken and said his shortness of breath is improving a fair bit but does still have episodes. He said swelling has improved as well. Continue aggressive diuresis. Possible discharge tomorrow with outpatient follow-up. Cardiology recommendations reviewed. Vitals/I&O Vitals/I&O: Vital Signs Date Time Temp Pulse Resp B/P (MAP) Pulse Ox O2 Delivery O2 Flow Rate FiO2 02/14/22 11:46 83 148/104 02/14/22 10:20 97.4 16 99 Room Air 97.4 I & O 02/13/22 02/13/22 02/14/22 15:00 23:00 07:00 Intake Total 480 ml 180 ml 640 ml Balance 480 ml 180 ml 640 ml Physical Exam General: Alert, Cooperative, No acute distress Heart: Regular rate Lungs: Clear Abdomen: Normal bowel sounds Extremities: Normal pulses Skin: No breakdown, No significant lesion Assessment and Plan Assessmemt and Plan Problems Medical Problems: (1) Accelerated hypertension Status: Acute (2) Acute exacerbation of congestive heart failure Status: Acute (3) Acute renal insufficiency Status: Acute (4) NSTEMI (non-ST elevated myocardial infarction) Status: Acute Comment Review of Relevant I have reviewed the following items cayetano (where applicable) has been applied. Medications: Current Medications Medications (Trade) Dose Ordered Sig/Hussein Route PRN Reason Start Time Stop Time Status Last Admin Dose Admin Lisinopril (Prinivil) 5 mg DAILY PO 02/14/22 12:00 02/14/22 12:28 DC 02/14/22 11:46 Rivaroxaban (Xarelto) 20 mg DAILYWSUP PO 02/14/22 13:00 02/14/22 13:11 Justifications for Admission Other Justification Hypertensive emergency HARIS HERRERA MD Feb 14, 2022 14:12
--- NOTE | 2022-02-14 14:20 | PDOC3 ---
Discharge Summary Visit Information Date of Admission: Feb 11, 2022 Date of Discharge: Feb 14, 2022 Final Diagnosis Problems Medical Problems: (1) Accelerated hypertension Status: Acute (2) Acute exacerbation of congestive heart failure Status: Acute (3) Acute renal insufficiency Status: Acute (4) NSTEMI (non-ST elevated myocardial infarction) Status: Acute Brief Hospital Course Allergies Allergies Coded Allergies Type Severity Reaction Last Updated Verified No Known Drug Allergies 03/31/18 No Vital Signs Vital Signs Date Time Temp Pulse Resp B/P (MAP) Pulse Ox O2 Delivery O2 Flow Rate FiO2 02/14/22 11:46 83 148/104 02/14/22 10:20 97.4 16 99 Room Air 97.4 Lab Results Laboratory Tests Test 02/13/22 04:00 Sodium Level 137 mmol/L (136-145) Potassium Level 4.2 mmol/L (3.5-5.1) Chloride Level 104 mmol/L (98-107) Carbon Dioxide Level 26 mmol/L (21-32) Anion Gap 7 (6-14) Blood Urea Nitrogen 25 mg/dL (8-26) Creatinine 1.7 mg/dL (0.7-1.3) Estimated GFR (Cockcroft-Gault) 57.5 Glucose Level 96 mg/dL (70-99) Calcium Level 8.4 mg/dL (8.5-10.1) Brief Hospital Course Mr. Stevenson is a 31 old male who presented with acute on chronic combined heart failure hypertensive urgency. Consultation was placed to cardiology. He was placed on nicardipine drip acutely, then transitioned off to oral medications. He had echocardiogram that showed severely impaired left ventricular function, mildly dilated LV, severe global hypokinesis of LV, EF <20%. He was treated with carvedilol, losartan, and blood pressure control. He was later placed on Xarelto and fitted for LifeVest. He will follow-up with our [facility]stit[facility] hemmer at [facility] where he will later transition to Entresto. Discharge Information Condition at Discharge: Stable Disposition/Orders: D/C to Home Scheduled Info (No Known Medications Prior To Admisstion) Each, 1 EACH 1X for , (Reported) Entered as Reported by: BUTCH GONZALEZ RN on 02/11/22609 Last Action: New Order on 02/11/22609 by BUTCH GONZALEZ RN Justicifation of Admission Dx: Justifications for Admission: Justification of Admission Dx: Yes HARIS HERRERA MD Feb 14, 2022 14:20
[2022-02-14] MEDS ORDERED: RIVA10TA PO (14:28)
[2022-02-14] MEDS ORDERED: CARV6.2511 PO (14:28)
[2022-02-14] MEDS ORDERED: LOSA25TA54 PO (14:28)
[2022-02-14] MEDS ORDERED: ATOR20TA58 PO (14:28)
[2022-02-14] MEDS ORDERED: AMLO-187 PO (14:28)
[2022-02-14] MEDS ORDERED: ASPI-886 PO (14:28)
[2022-02-14 15:00] VITALS: BP 146/106
[2022-02-14 16:06] VITALS: BP 146/106
--- NOTE | 2022-02-14 17:20 | NUR ---
Discharge Note: SHADIA [address]AND[address] [place] [address] Discharge instructions and discharge home medications reviewed with Patient and a copy given. All questions have been answered and understanding verbalized. The following instructions and handouts were given: hypertension, heart failure, losartan, Xarelto, atorvastatin, carvedilol, amlodipine. Patient discharged to home with self care via wheelchair.
[2022-02-15] MEDS ORDERED: LOSARTAN POTASSIUM 25 MG TABLET. PO SCH (09:00)
== END 2022-02-14 17:20 | disposition home or self-care (01) | DRG 280 ==
LOC: ER 01:24 → 6 SOUTH 03:14
PROVIDERS: ADMIT Student in an Organized Health Care Education/Training Program; ATTEND Student in an Organized Health Care Education/Training Program
DX: I21.4 Non-ST elevation (NSTEMI) myocardial infarction (principal); I50.43 Acute on chronic combined systolic (congestive) and diastolic (congestive) heart failure; I16.1 Hypertensive emergency; N17.9 Acute kidney failure, unspecified; I42.8 Other cardiomyopathies; E78.5 Hyperlipidemia, unspecified; F17.210 Nicotine dependence, cigarettes, uncomplicated; Z82.3 Family history of stroke; Z82.49 Family history of ischemic heart disease and other diseases of the circulatory system; Z91.14 Patient's other noncompliance with medication regimen; Z91.19 Patient's noncompliance with other medical treatment and regimen; Z88.8 Allergy status to other drugs, medicaments and biological substances
CPT/HCPCS: 36415; 71045; 80048; 80053; 80061; 80307; 83880; 84443; 84484; 85025; 85610; 85730; 93005; 93306; 96365; 96372; 96375; G0480; J1644; J1650; J1940; J3490; J7050; 99285-25; C8929; G0378; J7030